=== PATIENT | female | born 1980 ===

== ENCOUNTER 2016-08-21 10:12 | Inpatient (IN) | payer MEDICAID, OTHER ==
[2016-08-21] MEDS ORDERED: Sodium Chloride 0.9% 1,000 ML IV STA ×2 (10:31→10:33)
[2016-08-21] MEDS ORDERED: Magnesium Sulfate 2 GM in Sodium Chloride 0.9% 100 ML IVPB ONE (10:32)
[2016-08-21 11:00] LABS: BASO # 0.02 K/mm3 (0.0-2.0); BASO % 0.5 % (0.0-3.0); GRAN # 2.53 (1.4-6.5); GRAN % 66.6 % (50.0-68.0); HEMOGLOBIN 12.4 gm/dL (12.0-16.0); LYMPH # 0.8 (1.2-3.4); LYMPH % 21.8 % (22.0-35.0); MEAN CELL VOLUME 97.1 fL (80.0-105.0); MEAN PLATELET VOLUME 8.6 fl (7.0-11.0); MONO # 0.4 (0.1-0.6); MONO % 11.1 % (1.0-6.0); PLATELET COUNT 134 10^3/uL (120.0-450.0); RBC 3.76 10^6/uL (3.5-6.1); RED CELL DISTRIBUTION WIDTH 18.6 % (11.5-14.5); WHITE BLOOD COUNT 3.8 10^3/ul (4.5-11.0)
[2016-08-21 11:13] LABS: ALB/GLOB RATIO 1.1 (1.1-1.8); ALBUMIN 3.9 g/dL (3.0-4.8); ALT/SGPT 73 U/L (7-56); AST/SGOT 395 U/L (15-39); BLOOD UREA NITROGEN 11 mg/dL (7-21); CALCIUM 8.2 mg/dL (8.4-10.5); GFR AFRICAN-AMERICAN > 60; GFR NON-AFRICAN AMERICAN > 60; LIPASE 92 U/L (23-300); MAGNESIUM 1.1 mg/dL (1.7-2.2)
[2016-08-21 11:20] LABS: URINE BILIRUBIN MODERATE (NEGATIVE); URINE BLOOD SMALL (NEGATIVE); URINE GLUCOSE (UA) NEGATIVE (NEGATIVE); URINE LEUKOCYTE ESTERASE MODERATE Leu/uL (NEGATIVE); URINE NITRATE POSITIVE (NEGATIVE); URINE PROTEIN 100 mg/dL (<30 mg/dL)
[2016-08-21 11:26] LABS: URINE APPEARANCE SL CLOUDY (CLEAR); URINE COLOR DARK YELLOW (YELLOW)
[2016-08-21 11:31] LABS: URINE BACTERIA LARGE (NEG); URINE EPITHELIAL CELLS 0 - 2 /hpf (0-5); URINE RBC 0 - 2 /hpf (0-2); URINE WBC 20 - 25 /hpf (0-6)
[2016-08-21] MEDS ORDERED: Potassium Chloride 40 mEq/30 ml LIQ UD PO STA (11:45)
[2016-08-21] MEDS ORDERED: cefTRIAXone 1 gm 1 GM/100 ML BAG IVPB STA (11:51)
[2016-08-21] MEDS ORDERED: Multivitamin (MVI) 10 ML, Thiamine 100 MG, Folic Acid 1 MG in Sodium Chloride 0.9% 1,00... IV ONE (12:32)
--- NOTE | 2016-08-21 12:52 | ED PDOC ---
Arrival/HPI - General Chief Complaint: Back Pain Time Seen by Provider: 08/21/16 10:16 Historian: Patient - History of Present Illness Narrative History of Present Illness (Text): 08/21/16 10:30 A 35 year old female, whose past medical history includes seizure disorder, was brought in by EMS to the emergency department for alcohol withdrawal symptoms. Patient reports to heavy drinking daily, last drink was 2 days ago. Patient complaining of nausea, vomiting, non-bilious, non-bloody, and mild left lower back pain but denies any hematuria, dysuria, fever or any other complaints at this time. Time/Duration: Other (2 days) Symptom Onset: Sudden Symptom Course: Unchanged Activities at Onset: Rest Context: Home Past Medical History - Provider Review Nursing Documentation Reviewed: Yes - Past History Past History: Unable to Obtain - Infectious Disease Hx of Infectious Diseases: None - Tetanus Immunization Tetanus Immunization: Unknown - Cardiac Hx Cardiac Disorders: No - Pulmonary Hx Respiratory Disorders: No - Neurological Hx Neurological Disorder: Yes Hx Seizures: Yes (followed by neurologist in [facility] [place] - HEENT Hx HEENT Disorder: No - Renal Hx Renal Disorder: No - Endocrine/Metabolic Hx Endocrine Disorders: No - Hematological/Oncological Hx Anemia: Yes (iron deficient) - Integumentary Hx Dermatological Disorder: No - Musculoskeletal/Rheumatological Hx Musculoskeletal Disorders: No Hx Falls: No - Gastrointestinal Hx Gastrointestinal Disorders: No - Genitourinary/Gynecological Hx Ovarian Cancer: Yes - Psychiatric Hx Bipolar Disorder: Yes Hx Depression: Yes Hx Schizophrenia: Yes Hx Substance Use: Yes - Past Surgical History Past Surgical History: Unable to Obtain - Surgical History Hx Section: Yes Hx Hysterectomy: Yes - Anesthesia Hx Anesthesia: Yes Hx Anesthesia Reactions: No - Suicidal Assessment Feels Threatened In Home Enviroment: No Family/Social History - Physician Review Nursing Documentation Reviewed: Yes Family/Social History: No Known Family HX Smoking Status: Heavy Smoker > 10 Cigarettes Daily Hx Alcohol Use: Yes Hx Substance Use: Yes Substance used: Oxycodone, heroin Hx Substance Use Treatment: No Allergies/Home Meds Allergies/Adverse Reactions: Allergies shellfish Allergy (Uncoded 08/21/16 10:30) ANGIOEDEMA Review of Systems - Physician Review All systems were reviewed & negative as marked: Yes - Review of Systems Constitutional: absent: Fevers Gastrointestinal: Nausea, Vomiting Genitourinary Female: absent: Dysuria, Hematuria Musculoskeletal: Other (mild left lower back pain) Physical Exam Vital Signs Reviewed: Yes Vital Signs Temp Pulse Resp BP Pulse Ox 08/21/16 13:04 62 18 130/64 98 08/21/16 11:54 62 18 122/64 98 08/21/16 10:14 98.8 F 78 18 140/104 H 100 Temperature: Afebrile Blood Pressure: Hypertensive Pulse: Regular Respiratory Rate: Normal Appearance: Positive for: Well-Appearing, Non-Toxic, Comfortable Pain Distress: None Mental Status: Positive for: Alert and Oriented X 3 - Systems Exam Head: Present: Atraumatic, Normocephalic Pupils: Present: PERRL Extroacular Muscles: Present: EOMI Conjunctiva: Present: Normal Mouth: Present: Dry, Other (tongue fasciculations) Neck: Present: Normal Range of Motion Respiratory/Chest: Present: Clear to Auscultation, Good Air Exchange. No: Respiratory Distress, Accessory Muscle Use Cardiovascular: Present: Regular Rate and Rhythm, Normal S1, S2. No: Murmurs Abdomen: Present: Tenderness (mild diffuse), Normal Bowel Sounds. No: Distention, Peritoneal Signs Back: Present: Normal Inspection Upper Extremity: Present: Other (bilateral upper extremity tremors). No: Cyanosis, Edema Lower Extremity: Present: Normal Inspection. No: Edema Neurological: Present: GCS=15, CN II-XII Intact, Speech Normal Skin: Present: Warm, Dry, Normal Color. No: Rashes Psychiatric: Present: Alert, Oriented x 3, Normal Insight, Normal Concentration Medical Decision Making ED Course and Treatment: 08/21/16 10:30 Impression: A 35 year old female with alcohol withdrawal symptoms. Differential Diagnosis included but are not limited to: alcohol withdrawal Plan: -- US abdomen -- Urinalysis -- labs -- Reassess and disposition Prior Visits: Notes and results from previous visits were reviewed. Patient last reported to the emergency department on 05/16/16 for evaluation of alcohol intoxication. Patient was admitted for alcohol detox. Progress Notes: 08/21/16 12:[address] Rendon, who accepts patient to be admitted to [facility] under her service. 08/21/16 13:25 US abdomen Creator : Westley Balderrama MD FINDINGS: LIVER: Liver was measured at 13.6 cm cc dimension on this current study however liver measured approximately 17.4 cm cc dimension on prior CT scan abdomen pelvis which is likely more accurate. Contour on liver demonstrates smooth contour however increased echotexture suggesting fatty infiltration. . Of. No obvious hepatic mass or collection. GALLBLADDER: Gallbladder is not visualized consistent with this patient's history of cholecystectomy COMMON BILE DUCT: Measures approximately 3.3 mm mm. No stones. No dilatation. PANCREAS: Pancreas is not seen on this study due to overlying bowel gas and body habitus. RIGHT KIDNEY: Measures approximately 10.0 x 3.9 x 5.5 cmcm. Normal echogenicity. No calculus, mass, or hydronephrosis. LEFT KIDNEY: Measures approximately 9.6 x 5.2 x 5.2 cmcm. Normal echogenicity. No calculus, mass, or hydronephrosis. SPLEEN: Spleen measured at 10.65 cm by 3.6 cm current ultrasound however the spleen measured approximately 11.7 cm cc x 14 cm ap x 3.[address] scan no splenic mass or collection. AORTA: No aneurysmal dilatation. IVC: Unremarkable. OTHER FINDINGS: None. IMPRESSION: Limited study as above. Liver exhibits increased echotexture likely related to a fatty infiltration however other infiltrative hepatocellular disease process not excluded. . - Lab Interpretations Lab Results: 08/21/16 10:50 08/21/16 10:50 Lab Results 08/21/16 11:12: Urine Color Dark yellow, Urine Appearance Sl cloudy, Urine pH 7.0, Ur Specific Grimsley 1.020, Urine Protein 100 H, Urine Glucose (UA) Negative , Urine Ketones 15 H, Urine Blood Small H, Urine Nitrate Positive H, Urine Bilirubin Moderate H, Urine Urobilinogen 2.0 H, Ur Leukocyte Esterase Moderate H , Urine RBC 0 - 2, Urine WBC 20 - 25, Ur Epithelial Cells 0 - 2, Urine Bacteria Large 08/21/16 10:50: Lactate Dehydrogenase 1302 H, Total Creatine Kinase 104, Troponin I < 0.01 08/21/16 10:50: Alcohol, Quantitative < 10 08/21/16 10:50: Sodium 138, Potassium 3.4 L, Chloride 100, Carbon Dioxide 28, Anion Gap 13, BUN 11, Creatinine 0.4 L, Est GFR ( Amer) > 60, Est GFR ( Non-Af Amer) > 60, Random Glucose 109, Calcium 8.2 L, Magnesium 1.1 L, Total Bilirubin 1.7 H, AST 395 H, ALT 73 H, Alkaline Phosphatase 414 H, Total Protein 7.4, Albumin 3.9, Globulin 3.5, Albumin/Globulin Ratio 1.1, Lipase 92 08/21/16 10:50: WBC 3.8 L, RBC 3.76, Hgb 12.4, Hct 36.5, MCV 97.1, MCH 33.0, MCHC 34.0, RDW 18.6 H, Plt Count 134, MPV 8.6, Gran % 66.6, Lymph % (Auto) 21.8 L, Beadle % (Auto) 11.1 H, Eos % (Auto) 0.0 L, Baso % (Auto) 0.5, Gran # 2.53, Lymph # 0.8 L, Beadle # 0.4, Eos # 0.0, Baso # 0.02 I have reviewed the lab results: Yes - RAD Interpretation Radiology Orders: 08/21/16 11:18 ABDOMEN COMPLETE [US] Stat - Medication Orders Current Medication Orders: Gabapentin (Neurontin) 300 mg PO BID [facility] PRN Reason: Protocol Last Admin: 08/21/16 17:19 Dose: 300 mg Multivitamins/Vitamin C 10 ml/Thiamine HCl 100 mg/ Folic Acid 1 mg/ Sodium Chloride 1,011.2 mls @ 100 mls/hr IV .Q10H7M ONE Stop: 08/21/16 22:38 Last Admin: 08/21/16 14:41 Dose: 100 mls/hr Ceftriaxone Sodium (Rocephin 1 Gram Ivpb) 1 gm in 100 mls @ 100 mls/hr IVPB DAILY [facility] PRN Reason: Protocol Levetiracetam (Keppra) 250 mg PO BID [facility] Last Admin: 08/21/16 17:20 Dose: 250 mg Lorazepam (Ativan) 2 mg IVP Q3H PRN; Protocol PRN Reason: Anxiety Last Admin: 08/21/16 17:19 Dose: 2 mg Ondansetron HCl (Zofran Inj) 4 mg IVP Q4H PRN PRN Reason: Nausea/Vomiting Pantoprazole Sodium (Protonix Inj) 40 mg IVP DAILY [facility] Last Admin: 08/21/16 13:02 Dose: 40 mg Quetiapine Fumarate (Seroquel) 100 mg PO HS [facility] PRN Reason: Protocol Trazodone HCl (Desyrel) 100 mg PO HS PRN PRN Reason: Insomnia Discontinued Medications Famotidine (Pepcid) 20 mg IVP STAT STA Stop: 08/21/16 10:32 Last Admin: 08/21/16 10:58 Dose: 20 mg Magnesium Sulfate 2 gm/ Sodium (Chloride) 104 mls @ 102 mls/hr IVPB ONCE ONE Stop: 08/21/16 11:33 Last Admin: 08/21/16 11:49 Dose: 102 mls/hr Sodium Chloride (Sodium Chloride 0.9%) 1,000 mls @ 1,000 mls/hr IV .Q1H STA Stop: 08/21/16 11:30 Last Admin: 08/21/16 10:58 Dose: 1,000 mls/hr Sodium Chloride (Sodium Chloride 0.9%) 1,000 mls @ 999 mls/hr IV .Q1H1M STA Stop: 08/21/16 11:33 Last Admin: 08/21/16 11:54 Dose: 999 mls/hr Ceftriaxone Sodium (Rocephin 1 Gram Ivpb) 1 gm in 100 mls @ 200 mls/hr IVPB STAT STA PRN Reason: Protocol Stop: 08/21/16 12:20 Last Admin: 08/21/16 13:02 Dose: 200 mls/hr Lorazepam (Ativan) 2 mg IVP STAT STA PRN Reason: Protocol Stop: 08/21/16 10:33 Last Admin: 08/21/16 10:59 Dose: 2 mg Lorazepam (Ativan) 1 mg IVP Q3H PRN; Protocol PRN Reason: Anxiety Ondansetron HCl (Zofran Inj) 4 mg IVP STAT STA Stop: 08/21/16 10:32 Last Admin: 08/21/16 10:58 Dose: 4 mg Potassium Chloride (Potassium Chloride Oral Soln) 40 meq PO STAT STA Stop: 08/21/16 11:46 Last Admin: 08/21/16 13:02 Dose: 40 meq Potassium Chloride (K-Dur 20 Meq Er Tab) 40 meq PO STAT STA Stop: 08/21/16 14:47 Last Admin: 08/21/16 15:19 Dose: 40 meq - Scribe Statement The provider has reviewed the documentation as recorded by the Mariza Chacon Provider Scribe Attestation: All medical record entries made by the Scribe were at my direction and personally dictated by me. I have reviewed the chart and agree that the record accurately reflects my personal performance of the history, physical exam, medical decision making, and the department course for this patient. I have also personally directed, reviewed, and agree with the discharge instructions and disposition. Disposition/Present on Arrival - Present on Arrival Any Indicators Present on Arrival: No History of DVT/PE: No History of Uncontrolled Diabetes: No Urinary Catheter: No History of Decub. Ulcer: No History Surgical Site Infection Following: None - Disposition Have Diagnosis and Disposition been Completed?: Yes Diagnosis: Alcohol withdrawal Disposition: HOSPITALIZED Disposition Time: 11:20 Condition: STABLE
--- NOTE | 2016-08-21 13:24 | US ---
HISTORY: diffuse abd. pain with elevated LFT's COMPARISON: Comparison made with abdominal ultrasound 11/24/2012. Comparison also made with CT scan abdomen and pelvis 02/12/2016 TECHNIQUE: Sonographic evaluation of the abdomen. FINDINGS: LIVER: Liver was measured at 13.6 cm cc dimension on this current study however liver measured approximately 17.4 cm cc dimension on prior CT scan abdomen pelvis which is likely more accurate. Contour on liver demonstrates smooth contour however increased echotexture suggesting fatty infiltration. . Of. No obvious hepatic mass or collection. GALLBLADDER: Gallbladder is not visualized consistent with this patient's history of cholecystectomy COMMON BILE DUCT: Measures approximately 3.3 mm mm. No stones. No dilatation. PANCREAS: Pancreas is not seen on this study due to overlying bowel gas and body habitus. RIGHT KIDNEY: Measures approximately 10.0 x 3.9 x 5.5 cmcm. Normal echogenicity. No calculus, mass, or hydronephrosis. LEFT KIDNEY: Measures approximately 9.6 x 5.2 x 5.2 cmcm. Normal echogenicity. No calculus, mass, or hydronephrosis. SPLEEN: Spleen measured at 10.65 cm by 3.6 cm current ultrasound however the spleen measured approximately 11.7 cm cc x 14 cm ap x 3.[address] scan no splenic mass or collection. AORTA: No aneurysmal dilatation. IVC: Unremarkable. OTHER FINDINGS: None. IMPRESSION: Limited study as above. Liver exhibits increased echotexture likely related to a fatty infiltration however other infiltrative hepatocellular disease process not excluded. .
[2016-08-21] MEDS ORDERED: Potassium Chloride 20 mEq ER Tab PO STA (14:46)
[2016-08-21 16:15] LABS: TROPONIN I < 0.01 ng/mL
[2016-08-21 17:12] VITALS: BMI 26.2
--- NOTE | 2016-08-21 17:24 | CP.PCM.HP ---
Addendum entered and electronically signed by RAVINDRA RICO DO 08/21/16 19:01 : Chest pain was addressed with serial troponins, ECG and vital signs q12 ordered. Will consider consulting cardiology pending results. Original Note: <RAVINDRA RICO - Last Filed: 08/21/16 17:14> History of Present Illness - History of Present Illness History of Present Illness: Chief Complaint: Alcohol Withdrawal Symptoms Ms. Valencia is a 35 year old female with a past medical history of alcohol abuse/withdrawal, unspecified seizure disorder, migraines, anemia, and Bipolar Type 2 presented to the ED with chief complaints of known alcohol withdrawal symptoms along with associated nausea and vomiting. Patient states that she drank a "big bottle" of vodka on night and then finished the little she had left in that bottle on Monday morning. She states that she ran out of money and hasn't been able to purchase any alcohol since then. She started "shaking" on Monday and has vomited " a few times" since then. She states that she hasn't had any seizures but she has experienced withdrawal from alcohol before and knew it was time to come to the hospital. She received a dose of Ativan and a magnesium sulfate infusion in the ED. Currently, she reports that she hasn't vomited since she came to hospital or had "the shakes". She does endorse a non-radiating chest pain for a duration of two hours. She denies fever, headache, changes in vision, shortness of breath, palpitations, diarrhea or numbness/tingling/weakness of any extremity. PMH: alcohol abuse/withdrawal, unspecified seizure disorder, migraines, anemia, and Bipolar Type 2 PSH: Hysterectomy, 2 C-sections Social History: 20 year pack smoking history, alcohol abuse, marijuana occasionally Home Medications: Gabapentin, Keppra, Seroquel, Trazadone Present on Admission - Present on Admission Any Indicators Present on Admission: No Review of Systems - Review of Systems Review of Systems: Refer to HPI Past Patient History - Infectious Disease Hx of Infectious Diseases: None - Tetanus Immunizations Tetanus Immunization: Unknown - Past Medical History & Family History Past Medical History?: Yes - Past Social History Smoking Status: Heavy Smoker > 10 Cigarettes Daily - CARDIAC Hx Cardiac Disorders: No - PULMONARY Hx Respiratory Disorders: No - NEUROLOGICAL Hx Seizures: Yes - HEENT Hx HEENT Problems: No - RENAL Hx Chronic Kidney Disease: No - ENDOCRINE/METABOLIC Hx Endocrine Disorders: No - HEMATOLOGICAL/ONCOLOGICAL Hx Blood Disorders: No - INTEGUMENTARY Hx Dermatological Problems: No - MUSCULOSKELETAL/RHEUMATOLOGICAL Hx Musculoskeletal Disorders: No Hx Falls: Yes - GASTROINTESTINAL Other/Comment: gastric bypass 2004 - GENITOURINARY/GYNECOLOGICAL Hx Genitourinary Disorders: No - PSYCHIATRIC Hx Psychophysiologic Disorder: No Hx Substance Use: No - SURGICAL HISTORY Hx Gastric Bypass Surgery: Yes (2004) Hx Hysterectomy: Yes (partial) - ANESTHESIA Hx Anesthesia: Yes Hx Anesthesia Reactions: No Meds Allergies/Adverse Reactions: Allergies Allergy/AdvReac Type Severity Reaction Status Date / Time shellfish Allergy ANGIOEDEMA Uncoded 08/21/16 10:30 Physical Exam - Constitutional Appears: No Acute Distress - Head Exam Head Exam: NORMAL INSPECTION - Eye Exam Eye Exam: EOMI, Normal appearance - ENT Exam ENT Exam: Mucous Membranes Moist, Normal Exam - Neck Exam Neck exam: Positive for: Full Rom - Respiratory Exam Respiratory Exam: Clear to Auscultation Bilateral, NORMAL BREATHING PATTERN. absent: Rales, Rhonchi, Wheezes, Respiratory Distress - Cardiovascular Exam Cardiovascular Exam: REGULAR RHYTHM, RRR, +S1, +S2 - GI/Abdominal Exam GI & Abdominal Exam: Normal Bowel Sounds. absent: Tenderness - Extremities Exam Extremities exam: Positive for: pedal pulses present. Negative for: calf tenderness, pedal edema - Neurological Exam Neurological exam: Alert, Oriented x3 - Psychiatric Exam Psychiatric exam: Normal Affect, Normal Mood - Skin Skin Exam: Dry, Intact, Normal Color, Warm Results - Vital Signs Recent Vital Signs: Last Vital Signs Temp 98.8 F 08/21/16 10:14 Pulse 62 08/21/16 13:04 Resp 14 08/21/16 16:52 BP 130/64 08/21/16 13:04 Pulse Ox 98 08/21/16 13:04 - Labs Result Diagrams: 08/21/16 10:50 08/21/16 10:50 Assessment & Plan - Assessment and Plan (Free Text) Assessment: Ms. Valencia is a 35 year old female with a past medical history of alcohol abuse/withdrawal, unspecified seizure disorder, migraines, anemia, and Bipolar Type 2 presented to the ED with chief complaints of known alcohol withdrawal symptoms along with associated nausea and vomiting. Plan: 1. Alcohol Withdrawal - Ativan 2mg q3 PRN, Banana bag - CIWA protocols, fall precautions, aspiration precautions - daily CBC, CMP and one time UDS to assess for history of drug use ordered - SW consulted to assist patient in finding resources for alcohol cessation - PT/OT evaluation 2. Nausea/Vomiting - Zofran 4mg IVP q4 PRN 3. UTI - UA with mod LE, positive nitrate, 20-25 WBC and large number bacteria - Rocephin 1g IVPB 4. History of Bipolar Type 2 - Psych consult, appreciate all recommendations - home Seroquel and trazadone resumed 5. History of Unspecified seizure disorder - resumed home neurontin and keppra 6. GI/DVT Prophylaxis - Protonix/scd's Patient was seen and case discussed in detail with attending, Dr. Rendon. - Date & Time Date: 08/21/16 Time: 18:42 <Shiav Rendon - Last Filed: 08/22/16 15:51> Results - Vital Signs Recent Vital Signs: Last Vital Signs Temp 98.7 F 08/22/16 08:01 Pulse 125 H 08/22/16 10:00 Resp 20 08/22/16 08:01 BP 120/73 08/22/16 08:01 Pulse Ox 92 L 08/22/16 08:01 - Labs Result Diagrams: 08/22/16 06:00 08/22/16 06:00 Labs: Laboratory Results - last 24 hr 08/22/16 08/22/16 08/22/16 06:00 06:00 06:00 WBC 2.4 L* D RBC 3.29 L Hgb 10.4 L Hct 32.2 L MCV 97.9 MCH 31.6 MCHC 32.3 RDW 18.1 H Plt Count 108 L MPV 9.1 Neutrophils % (Manual) 48 L Lymphocytes % (Manual) 42 H Monocytes % (Manual) 8 H Eosinophils % (Manual) 2 Platelet Evaluation Low Hypochromasia Slight PT 12.0 H INR 1.11 H APTT 27.0 Sodium 139 Potassium 3.5 L Chloride 106 Carbon Dioxide 26 Anion Gap 11 BUN 6 L Creatinine 0.4 L Est GFR ( Amer) > 60 Est GFR (Non-Af Amer) > 60 Random Glucose 70 Calcium 7.5 L Phosphorus Magnesium Total Bilirubin 1.0 AST 226 H ALT 54 Alkaline Phosphatase 283 H Lactate Dehydrogenase 915 H Total Creatine Kinase 104 Troponin I < 0.01 Total Protein 5.6 L Albumin 2.9 L Globulin 2.7 Albumin/Globulin Ratio 1.1 08/22/16 06:00 WBC RBC Hgb Hct MCV MCH MCHC RDW Plt Count MPV Neutrophils % (Manual) Lymphocytes % (Manual) Monocytes % (Manual) Eosinophils % (Manual) Platelet Evaluation Hypochromasia PT INR APTT Sodium Potassium Chloride Carbon Dioxide Anion Gap BUN Creatinine Est GFR ( Amer) Est GFR (Non-Af Amer) Random Glucose Calcium Phosphorus 2.9 Magnesium 1.6 L Total Bilirubin AST ALT Alkaline Phosphatase Lactate Dehydrogenase Total Creatine Kinase Troponin I Total Protein Albumin Globulin Albumin/Globulin Ratio Attending/Attestation - Attestation I have personally seen and examined this patient.: Yes I have fully participated in the care of the patient.: Yes I have reviewed all pertinent clinical information: Yes Notes (Text): 08/22/16 15:48 attending note; Patient seen and examined with resident in ER. Patient is a 35 year old female with a past medical history of alcohol abuse/ withdrawal, unspecified seizure disorder, migraines, anemia, and Bipolar Type 2 presented to the ED with chief complaints of known alcohol withdrawal symptoms along with associated nausea and vomiting. alcohol level was less than 10. Continue IV banana bag, Ativan. Seizure protocol/ CIWA protocol. Bipolar disorder; psych evaluation requested. Complete alcohol cessation is strongly advised. AA rehabilitation/AA meeting information given. elevated LFTs; secondary to alcohol abuse and hepatitis C chronic. History of hepatitis C; not treated. we will refer the patient to [facility] for hepatology clinic for further treatment. The patient will follow-up with PMD at [facility].
[2016-08-22 06:26] LABS: INR 1.11 (0.93-1.08)
[2016-08-22 07:04] LABS: ALB/GLOB RATIO 1.1 (1.1-1.8); ALBUMIN 2.9 g/dL (3.0-4.8); ALT/SGPT 54 U/L (7-56); AST/SGOT 226 U/L (15-39); BLOOD UREA NITROGEN 6 mg/dL (7-21); CALCIUM 7.5 mg/dL (8.4-10.5); GFR AFRICAN-AMERICAN > 60; GFR NON-AFRICAN AMERICAN > 60
[2016-08-22 07:13] LABS: TROPONIN I < 0.01 ng/mL
[2016-08-22 07:26] LABS: HEMOGLOBIN 10.4 gm/dL (12.0-16.0); MEAN CELL VOLUME 97.9 fL (80.0-105.0); MEAN CORPUSCULAR HEMOGLOBIN 31.6 pg (25.0-35.0); MEAN CORPUSCULAR HGB CONC 32.3 g/dl (31.0-37.0); MEAN PLATELET VOLUME 9.1 fl (7.0-11.0); PLATELET COUNT 108 10^3/uL (120.0-450.0); RBC 3.29 10^6/uL (3.5-6.1); RED CELL DISTRIBUTION WIDTH 18.1 % (11.5-14.5)
[2016-08-22 07:44] LABS: WHITE BLOOD COUNT 2.4 10^3/ul (4.5-11.0)
[2016-08-22 08:02] VITALS: RESP 20
[2016-08-22 08:36] LABS: EOSINOPHIL 2 % (0.0-3.0); LYMPHOCYTE 42 % (22.0-35.0); MONOCYTE 8 % (1.0-6.0); NEUTROPHIL 48 % (50.0-70.0)
[2016-08-22 08:37] LABS: HYPOCHROMIA SLIGHT; PLATELET ESTIMATE LOW (NORMAL)
[2016-08-22] MEDS: cefTRIAXone 1 gm 1 GM/100 ML BAG IVPB SCH (09:13)
[2016-08-22 09:23] LABS: MAGNESIUM 1.6 mg/dL (1.7-2.2)
[2016-08-22] MEDS ORDERED: Magnesium Sulfate 2 GM in Sodium Chloride 0.9% 100 ML IVPB ONE (12:16)
[2016-08-22] MEDS ORDERED: Potassium Chloride 20 mEq ER Tab PO ONE (12:30)
--- NOTE | 2016-08-22 15:27 | CP.PCM.CON ---
History of Present Illness - History of Present Illness History of Present Illness: Shortly pt is a 35 year old female with long and debilitating history of alcohol use disorder, history of being in detoxes in the past, most recent was in May 2016 at [facility],patient lives in [place] with a boyfriend, patient is mother of 2 children ages 10 and 11 years old. Her children live with her siste, pt currently resides with her fimelindae. She is unemployed at the moment and supports herself through her fiancee. patient was admitted on the medical side for evaluation of alcohol withdrawal symptoms, patient has history of bipolar disorder, history of alcohol use disorder that is why psychiatry consult was initiated. Patient was seen and examined at the morning time before breakfast patient was clear irritable, angry, "I am aggravate his right now, I need to eat before I talk to you". This movie writer attempted to speak to this patient within the next 40 minutes, patient presented much better, patient was calm, corporative, socially appropriate. Patient reported that she has history of bipolar disorder, patient reported that she was doing "fine recently", patient reported that she currently lives with her boyfriend who is very supportive, patient reported that she has cravings for alcohol, drinks approximately ago of vodka on daily basis, patient said at the moment of the interview she has mild withdrawal symptoms, upper extremities tremor, patient denied being depressed, denied thoughts of harming herself, denied thoughts of harming others. Patient denied visual, auditory, tactile hallucinations, patient denied feeling paranoid, patient reported that she has history of hearing voices. Patient was recently admitted to [facility] for detox, reports reviewed, pt was d/c to the [facility], pt was d/c on trazodone 100mg and seroquel 100mg, patient also has history of being admitted to the psychiatric inpatient unit to this facility most recent was in 01/17/[address] Box services, patient was diagnosed with mood disorder, opioid dependence, borderline personality. Patient has history of suicidal attempts, as per patient "it was very long time ago" patient didn't want to talk about that. Patient has hyperpigmentation so on the left upper extremity, seems like cuts, one was asked patient said that she burned herself with stove while cooking. pt has legal h/o: DUI arrest in 2015. Pt smokes marijuana and 1 pack of cigarettes a day. As per Izaiah h/o: Past Psychiatric History: Bipolar, Depression Family Psychiatric History: Mother-unknown (pt only recalls her mother seeing a psychiatrist) , Aunt-unknown (Pt recalls she used to talk to herself) Family Drug History: Father- ETOH abuse PMH: Anemia (ok now), Asthma, Epilepsy (since childhood), but stable now. mental status examination: Patient presented to be alert, pleasant, corporative , but obviously has mood swings, patient has fair eye contact, speech was normal rate, tone, quality, and quantity. Patient described her mood as " I was feeling all right", affect was constricted, mood congruent, thought process was coherent and goal directed, thought content; Patient denied visual, auditory, tactile hallucinations, patient denied paranoid ideations, patient does not present to be psychotic, insight and judgment are limited but improving impulses are well controlled. DSM 5: Alcohol withdrawal Alcohol use disorder-severe Bipolar 2 d/o Cannabis use d/o - moderate Plan: patient was resumed on traZODone [Desyrel] 100 mg PO HS PRN y medical team, agree Multivitamins, thiamine, folic acid PRN for alcohol withdrawals Naltrexone was d/w pt, risk/benefits and alternatives discussed with pt 50 mg daily levETIRAcetam [Keppra] 250 mg PO BID or seizures Gabapentin [Neurontin] 300 mg PO BID resumed by medical team, angry QUEtiapine [Seroquel] 100 mg PO HS was resumed by medical team, agree bed worker evaluation Possible [place] program Patient was attending [facility] program, consider to provide referral again If patient will be here tomorrow we'll follow-up on this patient Discussed with Dr. Rosales Past Patient History - Infectious Disease Hx of Infectious Diseases: None - Tetanus Immunizations Tetanus Immunization: Unknown - Past Medical History & Family History Past Medical History?: Yes - Past Social History Smoking Status: Heavy Smoker > 10 Cigarettes Daily - CARDIAC Hx Cardiac Disorders: No - PULMONARY Hx Respiratory Disorders: No - NEUROLOGICAL Hx Seizures: Yes - HEENT Hx HEENT Problems: No - RENAL Hx Chronic Kidney Disease: No - ENDOCRINE/METABOLIC Hx Endocrine Disorders: No - HEMATOLOGICAL/ONCOLOGICAL Hx Blood Disorders: No - INTEGUMENTARY Hx Dermatological Problems: No - MUSCULOSKELETAL/RHEUMATOLOGICAL Hx Musculoskeletal Disorders: No Hx Falls: Yes - GASTROINTESTINAL Other/Comment: gastric bypass 2004 - GENITOURINARY/GYNECOLOGICAL Hx Genitourinary Disorders: No - PSYCHIATRIC Hx Psychophysiologic Disorder: No Hx Substance Use: No - SURGICAL HISTORY Hx Gastric Bypass Surgery: Yes (2004) Hx Hysterectomy: Yes (partial) - ANESTHESIA Hx Anesthesia: Yes Hx Anesthesia Reactions: No Meds Allergies/Adverse Reactions: Allergies Allergy/AdvReac Type Severity Reaction Status Date / Time shellfish Allergy ANGIOEDEMA Uncoded 08/21/16 10:30 - Medications Medications: Current Medications Gabapentin (Neurontin) 300 mg PO BID [facility] PRN Reason: Protocol Last Admin: 08/22/16 09:13 Dose: 300 mg Ceftriaxone Sodium (Rocephin 1 Gram Ivpb) 1 gm in 100 mls @ 100 mls/hr IVPB DAILY [facility] PRN Reason: Protocol Last Admin: 08/22/16 09:13 Dose: 100 mls/hr Levetiracetam (Keppra) 250 mg PO BID [facility] Last Admin: 08/22/16 09:13 Dose: 250 mg Lorazepam (Ativan) 2 mg IVP Q3H PRN; Protocol PRN Reason: Anxiety Last Admin: 08/22/16 13:25 Dose: 2 mg Nicotine (Nicoderm Cq) 1 patch TD DAILY [facility] Last Admin: 08/22/16 09:14 Dose: 1 patch Ondansetron HCl (Zofran Inj) 4 mg IVP Q4H PRN PRN Reason: Nausea/Vomiting Pantoprazole Sodium (Protonix Inj) 40 mg IVP DAILY [facility] Last Admin: 08/22/16 09:13 Dose: 40 mg Potassium Chloride (K-Dur 20 Meq Er Tab) 40 meq PO ONCE ONE Stop: 08/22/16 23:26 Quetiapine Fumarate (Seroquel) 100 mg PO HS [facility] PRN Reason: Protocol Last Admin: 08/21/16 22:01 Dose: 100 mg Trazodone HCl (Desyrel) 100 mg PO HS PRN PRN Reason: Insomnia Last Admin: 08/21/16 22:01 Dose: 100 mg Results - Vital Signs Recent Vital Signs: Last Vital Signs Temp 98.7 F 08/22/16 08:01 Pulse 125 H 08/22/16 10:00 Resp 20 08/22/16 08:01 BP 120/73 08/22/16 08:01 Pulse Ox 92 L 08/22/16 08:01 - Labs Result Diagrams: 08/22/16 06:00 08/22/16 06:00 Labs: Laboratory Results - last 24 hr 08/22/16 08/22/16 08/22/16 06:00 06:00 06:00 WBC 2.4 L* D RBC 3.29 L Hgb 10.4 L Hct 32.2 L MCV 97.9 MCH 31.6 MCHC 32.3 RDW 18.1 H Plt Count 108 L MPV 9.1 Neutrophils % (Manual) 48 L Lymphocytes % (Manual) 42 H Monocytes % (Manual) 8 H Eosinophils % (Manual) 2 Platelet Evaluation Low Hypochromasia Slight PT 12.0 H INR 1.11 H APTT 27.0 Sodium 139 Potassium 3.5 L Chloride 106 Carbon Dioxide 26 Anion Gap 11 BUN 6 L Creatinine 0.4 L Est GFR ( Amer) > 60 Est GFR (Non-Af Amer) > 60 Random Glucose 70 Calcium 7.5 L Phosphorus Magnesium Total Bilirubin 1.0 AST 226 H ALT 54 Alkaline Phosphatase 283 H Lactate Dehydrogenase 915 H Total Creatine Kinase 104 Troponin I < 0.01 Total Protein 5.6 L Albumin 2.9 L Globulin 2.7 Albumin/Globulin Ratio 1.1 08/22/16 06:00 WBC RBC Hgb Hct MCV MCH MCHC RDW Plt Count MPV Neutrophils % (Manual) Lymphocytes % (Manual) Monocytes % (Manual) Eosinophils % (Manual) Platelet Evaluation Hypochromasia PT INR APTT Sodium Potassium Chloride Carbon Dioxide Anion Gap BUN Creatinine Est GFR ( Amer) Est GFR (Non-Af Amer) Random Glucose Calcium Phosphorus 2.9 Magnesium 1.6 L Total Bilirubin AST ALT Alkaline Phosphatase Lactate Dehydrogenase Total Creatine Kinase Troponin I Total Protein Albumin Globulin Albumin/Globulin Ratio
--- NOTE | 2016-08-22 15:31 | CP.PCM.PN ---
<RAVINDRA RICO - Last Filed: 08/22/16 15:22> Subjective - Date & Time of Evaluation Date of Evaluation: 08/22/16 Time of Evaluation: 09:00 - Subjective Subjective: Medicine Progress Note: Pt seen and assessed at bedside. Pt had no new complaints this morning. She states that she feels better now that she "isn't having to run back and forth to the bathroom to vomit". Pt denies headache, changes in vision, shortness of breath, cough, chest pain, vomiting, diarrhea, or numbness/tingling/weakness in any extremities. Objective - Vital Signs/Intake and Output Vital Signs (last 24 hours): Temp Pulse Resp BP Pulse Ox 98.7 F 125 H 20 120/73 92 L 08/22/16 08:01 08/22/16 10:00 08/22/16 08:01 08/22/16 08:01 08/22/16 08:01 Intake and Output: 08/22/16 08/22/16 06:59 18:59 Intake Total 3260 720 Balance 3260 720 - Medications Medications: Current Medications Gabapentin (Neurontin) 300 mg PO BID [facility] PRN Reason: Protocol Last Admin: 08/22/16 09:13 Dose: 300 mg Ceftriaxone Sodium (Rocephin 1 Gram Ivpb) 1 gm in 100 mls @ 100 mls/hr IVPB DAILY [facility] PRN Reason: Protocol Last Admin: 08/22/16 09:13 Dose: 100 mls/hr Levetiracetam (Keppra) 250 mg PO BID [facility] Last Admin: 08/22/16 09:13 Dose: 250 mg Lorazepam (Ativan) 2 mg IVP Q3H PRN; Protocol PRN Reason: Anxiety Last Admin: 08/22/16 13:25 Dose: 2 mg Nicotine (Nicoderm Cq) 1 patch TD DAILY [facility] Last Admin: 08/22/16 09:14 Dose: 1 patch Ondansetron HCl (Zofran Inj) 4 mg IVP Q4H PRN PRN Reason: Nausea/Vomiting Pantoprazole Sodium (Protonix Inj) 40 mg IVP DAILY [facility] Last Admin: 08/22/16 09:13 Dose: 40 mg Potassium Chloride (K-Dur 20 Meq Er Tab) 40 meq PO ONCE ONE Stop: 08/22/16 23:26 Quetiapine Fumarate (Seroquel) 100 mg PO HS [facility] PRN Reason: Protocol Last Admin: 08/21/16 22:01 Dose: 100 mg Trazodone HCl (Desyrel) 100 mg PO HS PRN PRN Reason: Insomnia Last Admin: 08/21/16 22:01 Dose: 100 mg - Labs Labs: 08/22/16 06:00 08/22/16 06:00 PT 12.0 Seconds (9.9-11.8) H 08/22/16 06:00 INR 1.11 (0.93-1.08) H 08/22/16 06:00 APTT 27.0 Seconds (23.7-30.8) 08/22/16 06:00 - Constitutional Appears: No Acute Distress - Head Exam Head Exam: NORMAL INSPECTION - Eye Exam Eye Exam: EOMI, Normal appearance - ENT Exam ENT Exam: Mucous Membranes Moist, Normal Exam - Neck Exam Neck Exam: Full ROM - Respiratory Exam Respiratory Exam: Clear to Ausculation Bilateral, NORMAL BREATHING PATTERN. absent: Rales, Rhonchi, Wheezes - Cardiovascular Exam Cardiovascular Exam: REGULAR RHYTHM, +S1, +S2. absent: Murmur - GI/Abdominal Exam GI & Abdominal Exam: Normal Bowel Sounds. absent: Distended - Extremities Exam Extremities Exam: Full ROM. absent: Calf Tenderness, Pedal Edema - Neurological Exam Neurological Exam: Alert, Awake, Normal Gait, Oriented x3 - Psychiatric Exam Psychiatric exam: Normal Affect, Normal Mood - Skin Skin Exam: Dry, Intact, Normal Color, Warm Assessment and Plan - Assessment and Plan (Free Text) Assessment: Ms. Valencia is a 35 year old female with a past medical history of alcohol abuse/withdrawal, unspecified seizure disorder, migraines, anemia, and Bipolar Type 2 presented to the ED with chief complaints of known alcohol withdrawal symptoms along with associated nausea and vomiting. Plan: 1. Alcohol Withdrawal - Ativan 2mg q3 PRN, Banana bag - CIWA protocols, fall precautions (patient refusing), aspiration precautions - UDS to assess for drug use ordered - Hepatitis panel ordered as patient reports a history of Hepatitis C; will base recommendations pending results - SW consulted to assist patient in finding resources for alcohol cessation - cont PT/OT; mild unsteadiness with needs for stair training; DC plan is home - daily CBC, CMP 2. Nausea/Vomiting - Zofran 4mg IVP q4 PRN - Abdominal US shows enlarged liver echotexture likely d/t fatty liver 3. UTI - cont Rocephin 1g IVPB - UA with mod LE, positive nitrate, 20-25 WBC and large number bacteria 4. Hypokalemia - potassium at 3.4 this AM - 40 meq KCL PO BID (only on 08/22) - will continue to monitor 5. Hypomagnesemia - Mg at 1.6 this AM - IV Mg 2mg given - will continue to monitor 6. Chest pain - ECG and troponins negative - likely 2/2 musculoskeletal etiology - will cont to monitor 7. History of Bipolar Type 2 - Psych consult, appreciate all recommendations - home Seroquel and trazadone resumed 8. History of Unspecified seizure disorder - resumed home neurontin and keppra 9. GI/DVT Prophylaxis - Protonix/scd's Patient was seen and case discussed in detail with attending, Dr. Rendon. <Shiva Rendon - Last Filed: 08/22/16 15:53> Objective - Vital Signs/Intake and Output Vital Signs (last 24 hours): Temp Pulse Resp BP Pulse Ox 98.7 F 125 H 20 120/73 92 L 08/22/16 08:01 08/22/16 10:00 08/22/16 08:01 08/22/16 08:01 08/22/16 08:01 Intake and Output: 08/22/16 08/22/16 06:59 18:59 Intake Total 3260 720 Balance 3260 720 - Medications Medications: Current Medications Gabapentin (Neurontin) 300 mg PO BID [facility] PRN Reason: Protocol Last Admin: 08/22/16 09:13 Dose: 300 mg Ceftriaxone Sodium (Rocephin 1 Gram Ivpb) 1 gm in 100 mls @ 100 mls/hr IVPB DAILY [facility] PRN Reason: Protocol Last Admin: 08/22/16 09:13 Dose: 100 mls/hr Levetiracetam (Keppra) 250 mg PO BID [facility] Last Admin: 08/22/16 09:13 Dose: 250 mg Lorazepam (Ativan) 2 mg IVP Q3H PRN; Protocol PRN Reason: Anxiety Last Admin: 08/22/16 13:25 Dose: 2 mg Nicotine (Nicoderm Cq) 1 patch TD DAILY [facility] Last Admin: 08/22/16 09:14 Dose: 1 patch Ondansetron HCl (Zofran Inj) 4 mg IVP Q4H PRN PRN Reason: Nausea/Vomiting Pantoprazole Sodium (Protonix Inj) 40 mg IVP DAILY [facility] Last Admin: 08/22/16 09:13 Dose: 40 mg Potassium Chloride (K-Dur 20 Meq Er Tab) 40 meq PO ONCE ONE Stop: 08/22/16 23:26 Quetiapine Fumarate (Seroquel) 100 mg PO HS [facility] PRN Reason: Protocol Last Admin: 08/21/16 22:01 Dose: 100 mg Trazodone HCl (Desyrel) 100 mg PO HS PRN PRN Reason: Insomnia Last Admin: 08/21/16 22:01 Dose: 100 mg - Labs Labs: 08/22/16 06:00 08/22/16 06:00 PT 12.0 Seconds (9.9-11.8) H 08/22/16 06:00 INR 1.11 (0.93-1.08) H 08/22/16 06:00 APTT 27.0 Seconds (23.7-30.8) 08/22/16 06:00 Attending/Attestation - Attestation I have personally seen and examined this patient.: Yes I have fully participated in the care of the patient.: Yes I have reviewed all pertinent clinical information, including history, physical exam and plan: Yes Notes (Text): 08/22/16 15:52 attending note; Patient seen and examined with resident. Patient is a 35 year old female with a past medical history of alcohol abuse/ withdrawal, unspecified seizure disorder, migraines, anemia, and Bipolar Type 2 presented to the ED with chief complaints of known alcohol withdrawal symptoms along with associated nausea and vomiting. improved significantly. Tolerating diet. Continue IV banana bag, Ativan. Seizure protocol/ CIWA protocol. Bipolar disorder; psych evaluation appreciated. Patient follows up with [facility] for her psychiatric medication refill. Complete alcohol cessation is strongly advised. AA rehabilitation/AA meeting information given. pancytopenia; due to alcohol-induced bone marrow suppression. elevated LFTs; improving slowly. secondary to alcohol abuse and hepatitis C chronic. History of hepatitis C; not treated. we will refer the patient to [facility] for hepatology clinic for further treatment. The patient will follow-up with PMD at [facility].
[2016-08-22 16:53] LABS: HEPATITIS B SURFACE AG NEGATIVE (NEGATIVE)
[2016-08-22 16:59] LABS: HEPATITIS A IGM NEGATIVE (NEGATIVE); HEPATITIS B CORE AB NEGATIVE (NEGATIVE)
--- NOTE | 2016-08-22 17:18 | CARD ---
APPROVED REPORT EKG Measurement Heart [id number] <Conclusion> Normal sinus rhythm Minimal voltage criteria for LVH, may be normal variant Prolonged QT Abnormal ECG
[2016-08-22 18:28] LABS: BARBITURATES, UR NEGATIVE (NEGATIVE); BENZODIAZEPINES, UR NEGATIVE (NEGATIVE); OPIATES, UR NEGATIVE (NEGATIVE); PHENCYCLIDINE, UR NEGATIVE (NEGATIVE)
[2016-08-22 18:55] LABS: HEPATITIS C ANTIBODY REACTIVE (NEGATIVE)
[2016-08-22] MEDS: Potassium Chloride 20 mEq ER Tab PO ONE ×2 (21:31→23:25)
[2016-08-23 08:29] LABS: BASO # 0.01 K/mm3 (0.0-2.0); BASO % 0.3 % (0.0-3.0); EOS % 0.6 % (1.5-5.0); GRAN # 2.27 (1.4-6.5); GRAN % 67.7 % (50.0-68.0); HEMOGLOBIN 11.3 gm/dL (12.0-16.0); LYMPH # 0.8 (1.2-3.4); LYMPH % 23.9 % (22.0-35.0); MEAN CELL VOLUME 99.1 fL (80.0-105.0); MEAN CORPUSCULAR HEMOGLOBIN 32.5 pg (25.0-35.0); MEAN CORPUSCULAR HGB CONC 32.8 g/dl (31.0-37.0); MEAN PLATELET VOLUME 9.2 fl (7.0-11.0); MONO # 0.3 (0.1-0.6); MONO % 7.5 % (1.0-6.0); PLATELET COUNT 104 10^3/uL (120.0-450.0); RBC 3.48 10^6/uL (3.5-6.1); RED CELL DISTRIBUTION WIDTH 18.1 % (11.5-14.5); WHITE BLOOD COUNT 3.4 10^3/ul (4.5-11.0)
[2016-08-23 08:32] LABS: ALB/GLOB RATIO 1.2 (1.1-1.8); ALBUMIN 3.4 g/dL (3.0-4.8); ALT/SGPT 61 U/L (7-56); AST/SGOT 241 U/L (15-39); BLOOD UREA NITROGEN < 2 mg/dL (7-21); CALCIUM 8.5 mg/dL (8.4-10.5); GFR AFRICAN-AMERICAN > 60; GFR NON-AFRICAN AMERICAN > 60
[2016-08-23] MEDS: cefTRIAXone 1 gm 1 GM/100 ML BAG IVPB SCH (09:12)
--- NOTE | 2016-08-23 16:07 | CP.PCM.CON ---
History of Present Illness - History of Present Illness History of Present Illness: Follow up note: Shortly pt is a 35 year old female with long and debilitating history of alcohol use disorder, history of being in detoxes in the past, most recent was in May 2016 at [facility],patient lives in [place] with a boyfriend, patient is mother of 2 children ages 10 and 11 years old. Her children live with her siste, pt currently resides with her fiancee. She is unemployed at the moment and supports herself through her fiancee. patient was admitted on the medical side for evaluation of alcohol withdrawal symptoms, patient has history of bipolar disorder, history of alcohol use disorder that is why psychiatry consult was initiated. patient was followed up today, presented to be calm, corporative, mild tremor in upper extremities. Patient reported that she would like to continue Seroquel and trazodone, patient reported that she will follow up with [facility], patient was advised at [facility] does not accept new patients, patient was advised to follow up at [facility] outpatient program and also social work evaluation need to be called. Patient denied being depressed, denied thoughts of harming herself or others, denied intent or plan. Patient presented well during the interview. as per nursing report, patient calm, corporative, no behavioral incidents. mental status examination: Patient presented to be alert, pleasant, corporative , patient has fair eye contact, speech was normal rate, tone, quality, and quantity. Patient described her mood as " I am all right", affect was constricted, mood congruent, thought process was coherent and goal directed, thought content; Patient denied visual, auditory,tactile hallucinations, patient denied paranoid ideations, patient does not present to be psychotic, insight and judgment are limited but improving impulses are well controlled. DSM 5: Alcohol withdrawal Alcohol use disorder-severe Bipolar 2 d/o Cannabis use d/o - moderate Plan: patient was resumed on traZODone [Desyrel] 100 mg PO HS PRN y medical team, agree Multivitamins, thiamine, folic acid PRN for alcohol withdrawals Naltrexone was d/w pt, risk/benefits and alternatives discussed with pt 50 mg daily levETIRAcetam [Keppra] 250 mg PO BID or seizures Gabapentin [Neurontin] 300 mg PO BID resumed by medical team, angry QUEtiapine [Seroquel] 100 mg PO HS was resumed by medical team, agree bone worker evaluation Possible [place] program Patient was attending [facility] program, consider to provide referral again If patient will be here tomorrow we'll follow-up on this patient Discussed with Dr. Rosales this technical proposal writer will sign off thinking very much for letting me participate in care of your patient Past Patient History - Infectious Disease Hx of Infectious Diseases: None - Tetanus Immunizations Tetanus Immunization: Unknown - Past Medical History & Family History Past Medical History?: Yes - Past Social History Smoking Status: Heavy Smoker > 10 Cigarettes Daily - CARDIAC Hx Cardiac Disorders: No - PULMONARY Hx Respiratory Disorders: No - NEUROLOGICAL Hx Seizures: Yes - HEENT Hx HEENT Problems: No - RENAL Hx Chronic Kidney Disease: No - ENDOCRINE/METABOLIC Hx Endocrine Disorders: No - HEMATOLOGICAL/ONCOLOGICAL Hx Blood Disorders: No - INTEGUMENTARY Hx Dermatological Problems: No - MUSCULOSKELETAL/RHEUMATOLOGICAL Hx Musculoskeletal Disorders: No Hx Falls: Yes - GASTROINTESTINAL Other/Comment: gastric bypass 2004 - GENITOURINARY/GYNECOLOGICAL Hx Genitourinary Disorders: No - PSYCHIATRIC Hx Psychophysiologic Disorder: No Hx Substance Use: No - SURGICAL HISTORY Hx Gastric Bypass Surgery: Yes (2004) Hx Hysterectomy: Yes (partial) - ANESTHESIA Hx Anesthesia: Yes Hx Anesthesia Reactions: No Meds Home Medications: Home Medication List Medication Instructions Recorded Confirmed Type Ciprofloxacin [Cipro] 250 mg PO BID #6 tab 08/23/16 Rx LORazepam [Ativan] 0.5 mg PO TID #6 tab 08/23/16 Rx Allergies/Adverse Reactions: Allergies Allergy/AdvReac Type Severity Reaction Status Date / Time shellfish Allergy ANGIOEDEMA Uncoded 08/21/16 10:30 - Medications Medications: Current Medications Gabapentin (Neurontin) 300 mg PO BID [facility] PRN Reason: Protocol Last Admin: 08/23/16 09:13 Dose: 300 mg Ceftriaxone Sodium (Rocephin 1 Gram Ivpb) 1 gm in 100 mls @ 100 mls/hr IVPB DAILY [facility] PRN Reason: Protocol Last Admin: 08/23/16 09:12 Dose: 100 mls/hr Levetiracetam (Keppra) 250 mg PO BID [facility] Last Admin: 08/23/16 09:13 Dose: 250 mg Lorazepam (Ativan) 2 mg IVP Q3H PRN; Protocol PRN Reason: Anxiety Last Admin: 08/23/16 12:48 Dose: 2 mg Nicotine (Nicoderm Cq) 1 patch TD DAILY [facility] Last Admin: 08/23/16 09:13 Dose: 1 patch Ondansetron HCl (Zofran Inj) 4 mg IVP Q4H PRN PRN Reason: Nausea/Vomiting Pantoprazole Sodium (Protonix Inj) 40 mg IVP DAILY [facility] Last Admin: 08/23/16 09:13 Dose: 40 mg Quetiapine Fumarate (Seroquel) 100 mg PO HS [facility] PRN Reason: Protocol Last Admin: 08/22/16 22:00 Dose: Not Given Trazodone HCl (Desyrel) 100 mg PO HS PRN PRN Reason: Insomnia Last Admin: 08/21/16 22:01 Dose: 100 mg Results - Vital Signs Recent Vital Signs: Last Vital Signs Temp 98.5 F 08/23/16 07:57 Pulse 68 08/23/16 10:00 Resp 20 08/23/16 07:57 BP 128/92 H 08/23/16 07:57 Pulse Ox 100 08/23/16 07:57 - Labs Result Diagrams: 08/23/16 08:20 08/23/16 08:20 Labs: Laboratory Results - last 24 hr 08/22/16 08/22/16 08/23/16 13:54 17:50 08:20 WBC 3.4 L D RBC 3.48 L Hgb 11.3 L Hct 34.5 L MCV 99.1 MCH 32.5 MCHC 32.8 RDW 18.1 H Plt Count 104 L MPV 9.2 Gran % 67.7 Lymph % (Auto) 23.9 [place] % (Auto) 7.5 H Eos % (Auto) 0.6 L Baso % (Auto) 0.3 Gran # 2.27 Lymph # 0.8 L [place] # 0.3 Eos # 0.0 Baso # 0.01 Sodium Potassium Chloride Carbon Dioxide Anion Gap BUN Creatinine Est GFR ( Amer) Est GFR (Non-Af Amer) Random Glucose Calcium Total Bilirubin AST ALT Alkaline Phosphatase Total Protein Albumin Globulin Albumin/Globulin Ratio Urine Opiates Screen Negative Urine Methadone Screen Negative Ur Barbiturates Screen Negative Ur Phencyclidine Scrn Negative Ur Amphetamines Screen Negative U Benzodiazepines Scrn Negative U Oth Cocaine Metabols Negative U Cannabinoids Screen Negative Hepatitis A IgM Ab Negative Hep Bs Antigen Negative Hep B Core IgM Ab Negative Hepatitis C Antibody Reactive H 08/23/16 08:20 WBC RBC Hgb Hct MCV MCH MCHC RDW Plt Count MPV Gran % Lymph % (Auto) [place] % (Auto) Eos % (Auto) Baso % (Auto) Gran # Lymph # [place] # Eos # Baso # Sodium 139 Potassium 4.3 Chloride 105 Carbon Dioxide 26 Anion Gap 12 BUN < 2 L Creatinine 0.4 L Est GFR ( Amer) > 60 Est GFR (Non-Af Amer) > 60 Random Glucose 73 Calcium 8.5 Total Bilirubin 1.1 AST 241 H ALT 61 H Alkaline Phosphatase 306 H Total Protein 6.3 Albumin 3.4 Globulin 2.9 Albumin/Globulin Ratio 1.2 Urine Opiates Screen Urine Methadone Screen Ur Barbiturates Screen Ur Phencyclidine Scrn Ur Amphetamines Screen U Benzodiazepines Scrn U Oth Cocaine Metabols U Cannabinoids Screen Hepatitis A IgM Ab Hep Bs Antigen Hep B Core IgM Ab Hepatitis C Antibody
[2016-08-23 17:34] VITALS: TEMP 98.2
--- NOTE | 2016-08-23 22:13 | CP.PCM.PN ---
<RAVINDRA RICO - Last Filed: 08/23/16 22:04> Subjective - Date & Time of Evaluation Date of Evaluation: 08/23/16 Time of Evaluation: 15:00 - Subjective Subjective: Medicine Progress Note: Pt seen and assessed at bedside. Pt had no new complaints this morning. When asked if pt felt comfortable being discharged home she replied that she would feel more comfortable if she were observed for one more night in the hospital. Pt denies headache, changes in vision, shortness of breath, cough, chest pain, vomiting, diarrhea, or numbness/tingling/weakness in any extremities. Objective - Vital Signs/Intake and Output Vital Signs (last 24 hours): Temp Pulse Resp BP Pulse Ox 98.2 F 66 20 118/82 99 08/23/16 16:00 08/23/16 16:00 08/23/16 16:00 08/23/16 16:00 08/23/16 16:00 Intake and Output: 08/23/16 08/24/16 18:59 06:59 Intake Total 240 360 Balance 240 360 - Medications Medications: Current Medications Acetaminophen (Tylenol 325mg Tab) 650 mg PO Q4H PRN PRN Reason: Pain, severe (8-10) Last Admin: 08/23/16 17:07 Dose: 650 mg Gabapentin (Neurontin) 300 mg PO BID WILMER PRN Reason: Protocol Last Admin: 08/23/16 17:07 Dose: 300 mg Ceftriaxone Sodium (Rocephin 1 Gram Ivpb) 1 gm in 100 mls @ 100 mls/hr IVPB DAILY WILMER PRN Reason: Protocol Last Admin: 08/23/16 09:12 Dose: 100 mls/hr Levetiracetam (Keppra) 250 mg PO BID WILMER Last Admin: 08/23/16 17:08 Dose: 250 mg Lorazepam (Ativan) 2 mg IVP Q3H PRN; Protocol PRN Reason: Anxiety Last Admin: 08/23/16 20:48 Dose: 2 mg Nicotine (Nicoderm Cq) 1 patch TD DAILY [facility] Last Admin: 08/23/16 09:13 Dose: 1 patch Ondansetron HCl (Zofran Inj) 4 mg IVP Q4H PRN PRN Reason: Nausea/Vomiting Last Admin: 08/23/16 18:47 Dose: 4 mg Pantoprazole Sodium (Protonix Inj) 40 mg IVP DAILY WILMER Last Admin: 08/23/16 09:13 Dose: 40 mg Quetiapine Fumarate (Seroquel) 100 mg PO HS WILMER PRN Reason: Protocol Last Admin: 08/22/16 22:00 Dose: Not Given Trazodone HCl (Desyrel) 100 mg PO HS PRN PRN Reason: Insomnia Last Admin: 08/21/16 22:01 Dose: 100 mg - Labs Labs: 08/23/16 08:20 08/23/16 08:20 PT 12.0 Seconds (9.9-11.8) H 08/22/16 06:00 INR 1.11 (0.93-1.08) H 08/22/16 06:00 APTT 27.0 Seconds (23.7-30.8) 08/22/16 06:00 - Constitutional Appears: No Acute Distress - Head Exam Head Exam: NORMAL INSPECTION - Eye Exam Eye Exam: EOMI, Normal appearance Pupil Exam: PERRL - ENT Exam ENT Exam: Mucous Membranes Moist, Normal Exam - Neck Exam Neck Exam: Full ROM - Respiratory Exam Respiratory Exam: Clear to Ausculation Bilateral, NORMAL BREATHING PATTERN. absent: Rales, Rhonchi, Wheezes, Respiratory Distress - Cardiovascular Exam Cardiovascular Exam: REGULAR RHYTHM, RRR, +S1, +S2. absent: Murmur - GI/Abdominal Exam GI & Abdominal Exam: Soft, Normal Bowel Sounds. absent: Distended - Extremities Exam Extremities Exam: absent: Calf Tenderness, Joint Swelling, Pedal Edema - Neurological Exam Neurological Exam: Alert, Awake, Normal Gait, Oriented x3 - Psychiatric Exam Psychiatric exam: Normal Affect, Normal Mood - Skin Skin Exam: Dry, Intact, Normal Color, Warm Assessment and Plan - Assessment and Plan (Free Text) Assessment: Ms. Valencia is a 35 year old female with a past medical history of alcohol abuse/withdrawal, unspecified seizure disorder, migraines, anemia, and Bipolar Type 2 presented to the ED with chief complaints of known alcohol withdrawal symptoms along with associated nausea and vomiting. Plan: 1. Alcohol Withdrawal - Ativan 2mg q3 PRN, Banana bag - CIWA protocols, fall precautions (patient refusing), aspiration precautions - SW consulted to assist patient in finding resources for alcohol cessation; patient uninterested at this time - cont PT/OT; DC plan is home - daily CBC, CMP 2. History of Hepatitis C - Serology positive for verification of reported hepatitis C history - will recommend and provide appropriate hepatology outpatient follow-up upon discharge 3. Nausea/Vomiting - Zofran 4mg IVP q4 PRN - Abdominal US shows enlarged liver echotexture likely d/t fatty liver 4. UTI - cont Rocephin 1g IVPB - will discharge on PO Cipro 500mg BID - UA with mod LE, positive nitrate, 20-25 WBC and large number bacteria 5. Hypokalemia - potassium at 4.3 this AM; increased from 3.4 - 40 meq KCL PO BID (only on 08/22) - will continue to monitor 6. Hypomagnesemia - Mg at 1.6 on 08/22 - IV Mg 2mg given - will continue to monitor 7. Chest pain - ECG and troponins negative - likely 2/2 musculoskeletal etiology - will cont to monitor 8. History of Bipolar Type 2 - will provide appropriate outpatient follow up instructions to get in touch with [facility] services upon discharge - Psych consult, appreciate all recommendations - home Seroquel and trazadone resumed 9. History of Unspecified seizure disorder - resumed home neurontin and keppra 10. GI/DVT Prophylaxis - Protonix/scd's Patient was seen and case discussed in detail with attending, Dr. Rendon. <Shiva Rendon - Last Filed: 08/27/16 11:21> Objective - Vital Signs/Intake and Output Vital Signs (last 24 hours): Temp Pulse Resp BP Pulse Ox 98.2 F 71 20 121/83 98 08/24/16 06:00 08/24/16 06:00 08/24/16 06:00 08/24/16 06:00 08/24/16 06:00 - Labs Labs: 08/24/16 05:00 08/24/16 05:00 PT 12.0 Seconds (9.9-11.8) H 08/22/16 06:00 INR 1.11 (0.93-1.08) H 08/22/16 06:00 APTT 27.0 Seconds (23.7-30.8) 08/22/16 06:00 Attending/Attestation - Attestation I have personally seen and examined this patient.: Yes I have fully participated in the care of the patient.: Yes I have reviewed all pertinent clinical information, including history, physical exam and plan: Yes Notes (Text): 08/27/16 11:17 attending note; Patient seen and examined with resident. Patient is a 35 year old female with a past medical history of alcohol abuse/ withdrawal, unspecified seizure disorder, migraines, anemia, and Bipolar Type 2 presented to the ED with chief complaints of known alcohol withdrawal symptoms along with associated nausea and vomiting. improved significantly. still needing IV Ativan. Tolerating diet. Continue IV banana bag, Ativan. Seizure protocol/ CIWA protocol. Bipolar disorder; psych evaluation appreciated. Patient follows up with [facility] for her psychiatric medication refill. elevated LFTs; improving slowly. secondary to alcohol abuse and hepatitis C chronic. History of hepatitis C; not treated. we will refer the patient to [facility] for hepatology clinic for further treatment. The patient will follow-up with PMD at [facility] [place] [facility].
[2016-08-24 06:54] LABS: BASO # 0.01 K/mm3 (0.0-2.0); BASO % 0.2 % (0.0-3.0); EOS % 0.4 % (1.5-5.0); GRAN % 63.7 % (50.0-68.0); HEMOGLOBIN 11.9 gm/dL (12.0-16.0); LYMPH # 1.3 (1.2-3.4); LYMPH % 28.4 % (22.0-35.0); MEAN CELL VOLUME 100.3 fL (80.0-105.0); MEAN CORPUSCULAR HEMOGLOBIN 32.4 pg (25.0-35.0); MEAN CORPUSCULAR HGB CONC 32.3 g/dl (31.0-37.0); MEAN PLATELET VOLUME 9.8 fl (7.0-11.0); MONO # 0.3 (0.1-0.6); MONO % 7.3 % (1.0-6.0); PLATELET COUNT 126 10^3/uL (120.0-450.0); RBC 3.67 10^6/uL (3.5-6.1); RED CELL DISTRIBUTION WIDTH 18.1 % (11.5-14.5); WHITE BLOOD COUNT 4.6 10^3/ul (4.5-11.0)
[2016-08-24 06:57] LABS: ALB/GLOB RATIO 1.1 (1.1-1.8); ALBUMIN 3.6 g/dL (3.0-4.8); ALT/SGPT 58 U/L (7-56); AST/SGOT 184 U/L (15-39); BLOOD UREA NITROGEN 2 mg/dL (7-21); CALCIUM 8.9 mg/dL (8.4-10.5); GFR AFRICAN-AMERICAN > 60; GFR NON-AFRICAN AMERICAN > 60
[2016-08-24 10:07] VITALS: BP 121/83; PULSE 71; O2SAT 98
[2016-08-24] MEDS: cefTRIAXone 1 gm 1 GM/100 ML BAG IVPB SCH (10:43)
--- NOTE | 2016-08-28 16:33 | CP.PCM.DIS ---
Provider - Provider Date of Admission: 08/21/16 11:57 Attending physician: Shiva Rendon MD Primary care physician: None Consults: Psychiatry- Dr. Shah Time Spent in preparation of Discharge (in minutes): 47 Hospital Course - Lab Results Lab Results: Most Recent Lab Values WBC 4.6 10^3/ul (4.5-11.0) D 08/24/16 05:00 RBC 3.67 10^6/uL (3.5-6.1) 08/24/16 05:00 Hgb 11.9 gm/dL (12.0-16.0) L 08/24/16 05:00 Hct 36.8 % (36.0-48.0) 08/24/16 05:00 MCV 100.3 fL (80.0-105.0) 08/24/16 05:00 MCH 32.4 pg (25.0-35.0) 08/24/16 05:00 MCHC 32.3 g/dl (31.0-37.0) 08/24/16 05:00 RDW 18.1 % (11.5-14.5) H 08/24/16 05:00 Plt Count 126 10^3/uL (120.0-450.0) 08/24/16 05:00 MPV 9.8 fl (7.0-11.0) 08/24/16 05:00 Gran % 63.7 % (50.0-68.0) 08/24/16 05:00 Lymph % (Auto) 28.4 % (22.0-35.0) 08/24/16 05:00 [place] % (Auto) 7.3 % (1.0-6.0) H 08/24/16 05:00 Eos % (Auto) 0.4 % (1.5-5.0) L 08/24/16 05:00 Baso % (Auto) 0.2 % (0.0-3.0) 08/24/16 05:00 Gran # 2.90 (1.4-6.5) 08/24/16 05:00 Lymph # 1.3 (1.2-3.4) 08/24/16 05:00 [place] # 0.3 (0.1-0.6) 08/24/16 05:00 Eos # 0.0 (0.0-0.7) 08/24/16 05:00 Baso # 0.01 K/mm3 (0.0-2.0) 08/24/16 05:00 Neutrophils % (Manual) 48 % (50.0-70.0) L 08/22/16 06:00 Lymphocytes % (Manual) 42 % (22.0-35.0) H 08/22/16 06:00 Monocytes % (Manual) 8 % (1.0-6.0) H 08/22/16 06:00 Eosinophils % (Manual) 2 % (0.0-3.0) 08/22/16 06:00 Platelet Evaluation Low (NORMAL) 08/22/16 06:00 Hypochromasia Slight 08/22/16 06:00 PT 12.0 Seconds (9.9-11.8) H 08/22/16 06:00 INR 1.11 (0.93-1.08) H 08/22/16 06:00 APTT 27.0 Seconds (23.7-30.8) 08/22/16 06:00 Sodium 139 mmol/L (132-148) 08/24/16 05:00 Potassium 4.4 mmol/L (3.6-5.0) 08/24/16 05:00 Chloride 105 mmol/L (98-107) 08/24/16 05:00 Carbon Dioxide 26 mmol/L (21-33) 08/24/16 05:00 Anion Gap 12 (10-20) 08/24/16 05:00 BUN 2 mg/dL (7-21) L 08/24/16 05:00 Creatinine 0.5 mg/dL (0.5-1.4) 08/24/16 05:00 Est GFR ( Amer) > 60 08/24/16 05:00 Est GFR (Non-Af Amer) > 60 08/24/16 05:00 Random Glucose 76 mg/dL (70-110) 08/24/16 05:00 Calcium 8.9 mg/dL (8.4-10.5) 08/24/16 05:00 Phosphorus 2.9 mg/dL (2.5-4.5) 08/22/16 06:00 Magnesium 1.6 mg/dL (1.7-2.2) L 08/22/16 06:00 Total Bilirubin 0.9 mg/dL (0.2-1.3) 08/24/16 05:00 AST 184 U/L (15-39) H 08/24/16 05:00 ALT 58 U/L (7-56) H 08/24/16 05:00 Alkaline Phosphatase 306 U/L (38-133) H 08/24/16 05:00 Lactate Dehydrogenase 915 U/L (333-699) H 08/22/16 06:00 Total Creatine Kinase 104 U/L (35-230) 08/22/16 06:00 Troponin I < 0.01 ng/mL 08/22/16 06:00 Total Protein 6.8 g/dL (5.8-8.3) 08/24/16 05:00 Albumin 3.6 g/dL (3.0-4.8) 08/24/16 05:00 Globulin 3.2 gm/dL 08/24/16 05:00 Albumin/Globulin Ratio 1.1 (1.1-1.8) 08/24/16 05:00 Lipase 92 U/L (23-300) 08/21/16 10:50 Urine Color Dark yellow (YELLOW) 08/21/16 11:12 Urine Appearance Sl cloudy (CLEAR) 08/21/16 11:12 Urine pH 7.0 (4.7-8.0) 08/21/16 11:12 Ur Specific [place] 1.020 (1.005-1.035) 08/21/16 11:12 Urine Protein 100 mg/dL (<30 mg/dL) H 08/21/16 11:12 Urine Glucose (UA) Negative mg/dL (NEGATIVE) 08/21/16 11:12 Urine Ketones 15 mg/dL (NEGATIVE) H 08/21/16 11:12 Urine Blood Small (NEGATIVE) H 08/21/16 11:12 Urine Nitrate Positive (NEGATIVE) H 08/21/16 11:12 Urine Bilirubin Moderate (NEGATIVE) H 08/21/16 11:12 Urine Urobilinogen 2.0 E.U./dL (<1 E.U./dL) H 08/21/16 11:12 Ur Leukocyte Esterase Moderate [place]/uL (NEGATIVE) H 08/21/16 11:12 Urine RBC 0 - 2 /hpf (0-2) 08/21/16 11:12 Urine WBC 20 - 25 /hpf (0-6) 08/21/16 11:12 Ur Epithelial Cells 0 - 2 /hpf (0-5) 08/21/16 11:12 Urine Bacteria Large (NEG) 08/21/16 11:12 Urine Opiates Screen Negative (NEGATIVE) 08/22/16 17:50 Urine Methadone Screen Negative (NEGATIVE) 08/22/16 17:50 Ur Barbiturates Screen Negative (NEGATIVE) 08/22/16 17:50 Ur Phencyclidine Scrn Negative (NEGATIVE) 08/22/16 17:50 Ur Amphetamines Screen Negative (NEGATIVE) 08/22/16 17:50 U Benzodiazepines Scrn Negative (NEGATIVE) 08/22/16 17:50 U Oth Cocaine Metabols Negative (NEGATIVE) 08/22/16 17:50 U Cannabinoids Screen Negative (NEGATIVE) 08/22/16 17:50 Alcohol, Quantitative < 10 mg/dL (0-10) 08/21/16 10:50 Hepatitis A IgM Ab Negative (NEGATIVE) 08/22/16 13:54 Hep Bs Antigen Negative (NEGATIVE) 08/22/16 13:54 Hep B Core IgM Ab Negative (NEGATIVE) 08/22/16 13:54 Hepatitis C Antibody Reactive (NEGATIVE) H 08/22/16 13:54 - Hospital Course Hospital Course: Ms. Valencia is a 35 year old female with a past medical history of alcohol abuse/withdrawal, unspecified seizure disorder, migraines, anemia, and Bipolar Type 2 presented to the ED with chief complaints of known alcohol withdrawal symptoms along with associated nausea and vomiting. She received a dose of Ativan and a magnesium sulfate infusion in the ED. She was admitted to [facility] and started on a banana bag, PRN Ativan and CIWA precautions. She was found to have a UTI via her UA and was started on rocephin. She was also started on all of her home medications for Bipolar Disorder and her seizure disorder. Psychiatry was consulted to discuss management of these medications. PT/OT was consulted for patients complaint of weakness. Patient was treated for alcohol withdrawal and UTI as above for two days and then discharged home on 08/24 with PO Cipro for 10 days and 6 Ativan tablets for any more possible withdrawal from alcohol. - Date & Time of H&P Date of H&P: 08/21/16 Time of H&P: 17:14 Discharge Exam - Head Exam Head Exam: NORMAL INSPECTION - Eye Exam Eye Exam: EOMI, Normal appearance - ENT Exam ENT Exam: Mucous Membranes Moist, Normal Exam - Neck Exam Neck exam: Full Rom, Normal Inspection - Respiratory Exam Respiratory Exam: NORMAL BREATHING PATTERN, UNREMARKABLE. absent: Rales, Rhonchi, Wheezes, Respiratory Distress - Cardiovascular Exam Cardiovascular Exam: REGULAR RHYTHM, RRR, +S1, +S2. absent: Bradycardia, Tachycardia, Systolic Murmur - GI/Abdominal Exam GI & Abdominal Exam: Normal Bowel Sounds, Unremarkable. absent: Guarding, Mass , Tenderness - Extremities Exam Extremities exam: full ROM, pedal pulses present Additional comments: no calf tenderness or pedal edema bilaterally - Neurological Exam Neurological exam: Alert, Normal Gait, Oriented x3 - Psychiatric Exam Psychiatric exam: Normal Affect, Normal Mood - Skin Skin Exam: Dry, Intact, Normal Color, Warm Discharge Plan - Discharge Medications Prescriptions: Ciprofloxacin [Cipro] 500 mg PO BID #10 tab LORazepam [Ativan] 0.5 mg PO TID #6 tab - Follow Up Plan Condition: STABLE Disposition: HOME/ ROUTINE Instructions: Urinary Tract Infection in Women (DC), Abuse of Alcohol (DC), Alcohol Withdrawal (DC), Alcohol Dependence (GEN) Additional Instructions: If your symptoms persist or worsen, please seek emergency medical attention. Please follow up with your PMD for a hospital follow up visit within one week. TAKE ALL MEDICATIONS PRESCRIBED. Referrals: [employer] Cory Chavez, [Non-Staff] -
== END 2016-08-24 15:16 | disposition home or self-care (01) | DRG 750 ==
LOC: ED 10:12 → ERH 11:57 → 3RNO 13:34
PROVIDERS: ADMIT Internal Medicine; ATTEND Internal Medicine
DX: F10.239 Alcohol dependence with withdrawal, unspecified (principal); D61.818 Other pancytopenia; F31.81 Bipolar II disorder; E83.42 Hypomagnesemia; N39.0 Urinary tract infection, site not specified; B18.2 Chronic viral hepatitis C; E87.6 Hypokalemia; G40.909 Epilepsy, unspecified, not intractable, without status epilepticus; G43.909 Migraine, unspecified, not intractable, without status migrainosus; F12.90 Cannabis use, unspecified, uncomplicated; R07.9 Chest pain, unspecified; F17.210 Nicotine dependence, cigarettes, uncomplicated; R11.2 Nausea with vomiting, unspecified; Y90.0 Blood alcohol level of less than 20 mg/100 ml; Z98.84 Bariatric surgery status

== ENCOUNTER 2016-10-14 11:22 | Emergency (ER) | payer MEDICAID ==
[2016-10-14 11:25] VITALS: BMI 28.3
[2016-10-14 11:31] VITALS: RESP 18; TEMP 98.3; O2SAT 100
[2016-10-14] MEDS ORDERED: Sodium Chloride 0.9% 1,000 ML IV STA (12:27)
--- NOTE | 2016-10-14 13:08 | ED PDOC ---
Addendum entered and electronically signed by Maxi WARNER,Mee Pedro PA-C 11/22 14:16: Addendum Addendum: 10/16/16 14:16 Pt called, spoke to her father, request that the patient be informed to call ER back regarding urine cx results. Original Note: Arrival/HPI - General Historian: Patient <Jose Daniel Davis - Last Filed: 10/14/16 15:37> <Curt Arora DO - Last Filed: 10/14/16 21:49> - General Chief Complaint: Abdominal Pain Time Seen by Provider: 10/14/16 11:53 - History of Present Illness Narrative History of Present Illness (Text): 10/14/16 13:05 35 F with PMHx pertinent for non-obstructing stones, partial hysterectomy, L sided oophorectomy, and Hep C presents with 2 day duration of sharp, left lower back pain radiating to the LLQ of her abdomen of 8/10 severity. Patient also admits to light vaginal bleeding, and states that she just returned from her PMD 's office where she also had blood in the urine. Patient denies any f/ch/n/v/d/ cp/sob. (Jose Daniel Davis) Past Medical History - Provider Review Nursing Documentation Reviewed: Yes - Past History Past History: Unable to Obtain - Infectious Disease Hx of Infectious Diseases: None - Tetanus Immunization Tetanus Immunization: Unknown - Cardiac Hx Cardiac Disorders: No - Pulmonary Hx Respiratory Disorders: No - Neurological Hx Seizures: Yes - HEENT Hx HEENT Disorder: No - Renal Hx Renal Disorder: No - Endocrine/Metabolic Hx Endocrine Disorders: No - Hematological/Oncological Hx Blood Disorders: No - Integumentary Hx Dermatological Disorder: No - Musculoskeletal/Rheumatological Hx Musculoskeletal Disorders: No Hx Falls: Yes - Gastrointestinal Other/Comment: gastric bypass 2004 - Genitourinary/Gynecological Hx Genitourinary Disorders: No - Psychiatric Hx Psychophysiologic Disorder: No Hx Substance Use: No - Past Surgical History Past Surgical History: Unable to Obtain - Surgical History Hx Gastric Bypass Surgery: Yes (2004) Hx Hysterectomy: Yes (partial) - Anesthesia Hx Anesthesia: Yes Hx Anesthesia Reactions: No Hx Malignant Hyperthermia: No - Suicidal Assessment Feels Threatened In Home Enviroment: No <Jose Daniel Davis - Last Filed: 10/14/16 15:37> Family/Social History - Physician Review Nursing Documentation Reviewed: Yes Family/Social History: No Known Family HX Smoking Status: Heavy Smoker > 10 Cigarettes Daily Hx Alcohol Use: Yes Hx Substance Use: No Substance used: Oxycodone, heroin Hx Substance Use Treatment: No <Jose Daniel Davis - Last Filed: 10/14/16 15:37> Allergies/Home Meds <Jose Daniel Davis - Last Filed: 10/14/16 15:37> <Curt Arora DO - Last Filed: 10/14/16 21:49> Allergies/Adverse Reactions: Allergies shellfish Allergy (Uncoded 08/21/16 10:30) ANGIOEDEMA Review of Systems - Review of Systems Constitutional: Normal. absent: Fatigue, Weight Change, Fevers Eyes: Normal. absent: Vision Changes, Photophobia ENT: Normal. absent: Hearing Changes, Tinnitus Respiratory: Normal. absent: SOB, Cough Cardiovascular: Normal. absent: Chest Pain, Palpitations, Edema Gastrointestinal: Normal (She does complain of Left lower abdominal pain, but it is more of a radiation from her back). absent: Diarrhea, Nausea, Vomiting Genitourinary Female: Hematuria, Vaginal Bleeding. absent: Normal, Dysuria, Frequency Musculoskeletal: Back Pain (moreso flank pain). absent: Arthralgias, Neck Pain , Joint Swelling Skin: Normal. absent: Rash, Pruritis, Skin Lesions Neurological: Normal. absent: Headache, Dizziness, Focal Weakness Endocrine: Normal. absent: Diaphoresis, Polyuria Hemo/Lymphatic: Normal. absent: Adenopathy, Easy Bleeding Psychiatric: Normal. absent: Anxiety, Depression <Jose Daniel Davis - Last Filed: 10/14/16 15:37> Physical Exam Vital Signs Reviewed: Yes Temperature: Afebrile Blood Pressure: Normal Pulse: Regular Respiratory Rate: Normal Appearance: Positive for: Well-Appearing, Non-Toxic, Comfortable Pain Distress: None Mental Status: Positive for: Alert and Oriented X 3 - Systems Exam Head: Present: Atraumatic, Normocephalic. No: Tenderness, Contusion Pupils: Present: PERRL. No: Sluggish, Non-Reactive, Pinpoint Extroacular Muscles: Present: EOMI. No: Gaze Palsy, Entrapment Conjunctiva: Present: Normal. No: Injected, Icteric Mouth: Present: Moist Mucous Membranes. No: Dry, Drooling Neck: Present: Normal Range of Motion. No: MIDLINE TENDERNESS, Paraspinal Tenderness Respiratory/Chest: Present: Clear to Auscultation, Good Air Exchange. No: Respiratory Distress, Accessory Muscle Use Cardiovascular: Present: Regular Rate and Rhythm, Normal S1, S2. No: Murmurs Abdomen: Present: Normal Bowel Sounds. No: Tenderness, Distention, Peritoneal Signs Back: Present: Normal Inspection, CVA Tenderness, Pain with Leg Raise. No: Midline Tenderness, Paraspinal Tenderness Upper Extremity: Present: Normal Inspection. No: Cyanosis, Edema Lower Extremity: Present: Normal Inspection, NORMAL PULSES. No: Edema, CALF TENDERNESS, Cyanosis Neurological: Present: GCS=15, CN II-XII Intact, Speech Normal Skin: Present: Warm, Dry, Normal Color. No: Rashes Psychiatric: Present: Alert, Oriented x 3, Normal Insight, Normal Concentration <Jose Daniel Davis - Last Filed: 10/14/16 15:37> Medical Decision Making <Jose Daniel Davis - Last Filed: 10/14/16 15:37> <Curt Arora DO - Last Filed: 10/14/16 21:49> ED Course and Treatment: Assessed 10/14/16 12:17 Impression: 35 F with PMHx pertinent for non-obstructing stones, partial hysterectomy, L sided oophorectomy, and Hep C presenting with L flank pain and vaginal VS urinary bleeding. Patient very uncomfortable at bedside. Plan: - CT Abd w/o contrast - CMP, CBC - UA, U Cx, U cg - Chlamydia, Gono - Fluids, toradol - Reassess Reassessed 10/14/16 15:37 - CMP, CBC normal, with mild LFT elevation, same as last visit - Urinalysis does not show any UTI - Pt's pain better after toradol - CT showed no change in stone, non-obstructing - TVUS ordered - Reassess (Jose Daniel Davis) 10/14/16 14:02 Patient Seen With Resident: In agreement with resident note which contains more details about the patient. Patient was seen and evaluated with resident. Came up with plan and treatment together. (uCrt Arora DO) - Lab Interpretations Lab Results: 10/14/16 13:28 10/14/16 13:28 Lab Results 10/14/16 13:28: Sodium 142, Potassium 4.6, Chloride 105, Carbon Dioxide 27, Anion Gap 15, BUN 4 L, Creatinine 0.4 L, Est GFR ( Amer) > 60, Est GFR ( Non-Af Amer) > 60, Random Glucose 84, Calcium 9.3, Total Bilirubin 0.6, AST 336 H, ALT 222 H, Alkaline Phosphatase 191 H, Total Protein 7.3, Albumin 4.2, Globulin 3.2, Albumin/Globulin Ratio 1.3 10/14/16 13:28: Urine Color Yellow, Urine Appearance Clear, Urine pH 7.5, Ur Specific [place] 1.010, Urine Protein Negative, Urine Glucose (UA) Negative, Urine Ketones Negative, Urine Blood Negative, Urine Nitrate Negative, Urine Bilirubin Negative, Urine Urobilinogen 0.2, Ur Leukocyte Esterase Negative, Urine HCG, Qual Negative 10/14/16 13:28: WBC 3.9 L, RBC 3.85, Hgb 11.3 L, Hct 34.9 L, MCV 90.6, MCH 29.4 , MCHC 32.4, RDW 15.6 H, Plt Count 250, MPV 8.6, Gran % 67.6, Lymph % (Auto) 26.4, [place] % (Auto) 4.9, Eos % (Auto) 0.8 L, Baso % (Auto) 0.3, Gran # 2.61, Lymph # 1.0 L, [place] # 0.2, Eos # 0.0, Baso # 0.01 - RAD Interpretation Radiology Orders: 10/14/16 12:21 ABD & PELVIS W/O PO OR IV CONT [CT] Stat 10/14/16 14:51 TRANSVAGINAL [US] Stat - Medication Orders Current Medication Orders: Discontinued Medications Sodium Chloride (Sodium Chloride 0.9%) 1,000 mls @ 999 mls/hr IV .Q1H1M STA Stop: 10/14/16 13:27 Last Admin: 10/14/16 12:40 Dose: 999 mls/hr Ketorolac Tromethamine (Toradol) 15 mg IVP STAT STA Stop: 10/14/16 12:22 Last Admin: 10/14/16 12:39 Dose: 15 mg - PA / IN HOME TUTOR / Resident Statement / has reviewed & agrees with the documentation as recorded. / has examined the patient and agrees with the treatment plan. <Curt Arora DO - Last Filed: 10/14/16 21:49> Disposition/Present on Arrival - Present on Arrival Any Indicators Present on Arrival: No History of DVT/PE: No History of Uncontrolled Diabetes: No Urinary Catheter: No History of Decub. Ulcer: No History Surgical Site Infection Following: None - Disposition Have Diagnosis and Disposition been Completed?: Yes Disposition Time: 16:00 <Jose Daniel Davis - Last Filed: 10/14/16 15:37> <Curt Arora DO - Last Filed: 10/14/16 21:49> - Disposition Diagnosis: Abnormal vaginal bleeding Disposition: HOME/ ROUTINE Condition: GOOD Additional Instructions: Devora Lizbeth, thank you for letting us take care of you today. Your providers were Dr. Arora and Dr. Lanza. You were treated for flank pain. The emergency medical care you received today was directed at your acute symptoms. If you were prescribed any medication, please fill it and take as directed. It may take several days for your symptoms to resolve. Return to the Emergency Department if your symptoms worsen, do not improve, or if you have any other problems. Please contact your doctor or call one of the physicians/clinics you have been referred to that are listed on the Patient Visit Information form that is included in your discharge packet. Bring any paperwork you were given at discharge with you along with any medications you are taking to your follow up visit. Our treatment cannot replace ongoing medical care by a primary care provider (PCP) outside of the emergency department. You got a gonorrhea and chlamydia test today - please call back for results. Please follow up with your primary care doctor. Thank you for allowing the [email or web address] team to be part of your care today. Referrals: PCP,NO [Primary Care Provider] - Follow up with primary Forms: [email or web address] (Arabic)
[2016-10-14 13:49] LABS: ALB/GLOB RATIO 1.3 (1.1-1.8); ALKALINE PHOSPHATASE 191 U/L (38-126); ALT/SGPT 222 U/L (7-56); AST/SGOT 336 U/L (14-36); BILIRUBIN,TOTAL 0.6 mg/dL (0.2-1.3); BLOOD UREA NITROGEN 4 mg/dL (7-21); CALCIUM 9.3 mg/dL (8.4-10.5); CARBON DIOXIDE 27 mmol/L (21-33); CHLORIDE 105 mmol/L (98-107); GFR AFRICAN-AMERICAN > 60; GLUCOSE,RANDOM 84 mg/dL (70-110); PH,URINE 7.5 (4.7-8.0); POTASSIUM 4.6 mmol/L (3.6-5.0); SODIUM 142 mmol/L (132-148); TOTAL PROTEIN 7.3 g/dL (5.8-8.3); URINE BILIRUBIN NEGATIVE (NEGATIVE); URINE BLOOD NEGATIVE (NEGATIVE); URINE GLUCOSE (UA) NEGATIVE (NEGATIVE); URINE KETONE NEGATIVE (NEGATIVE); URINE LEUKOCYTE ESTERASE NEGATIVE Leu/uL (NEGATIVE); URINE PROTEIN NEGATIVE mg/dL (<30 mg/dL); URINE UROBILINOGEN 0.2 E.U./dL (<1 E.U./dL)
[2016-10-14 13:50] LABS: BASO # 0.01 K/mm3 (0.0-2.0); BASO % 0.3 % (0.0-3.0); EOS % 0.8 % (1.5-5.0); GRAN # 2.61 (1.4-6.5); GRAN % 67.6 % (50.0-68.0); HEMATOCRIT 34.9 % (36.0-48.0); LYMPH % 26.4 % (22.0-35.0); MEAN CELL VOLUME 90.6 fl (80.0-105.0); MEAN CORPUSCULAR HEMOGLOBIN 29.4 pg (25.0-35.0); MEAN CORPUSCULAR HGB CONC 32.4 g/dl (31.0-37.0); MEAN PLATELET VOLUME 8.6 fl (7.0-11.0); MONO # 0.2 (0.1-0.6); MONO % 4.9 % (1.0-6.0); RED CELL DISTRIBUTION WIDTH 15.6 % (11.5-14.5); WHITE BLOOD COUNT 3.9 10^3/ul (4.5-11.0)
[2016-10-14 13:52] LABS: URINE APPEARANCE CLEAR (CLEAR); URINE COLOR YELLOW (YELLOW)
--- NOTE | 2016-10-14 14:43 | CT ---
PROCEDURE: CT Abdomen and Pelvis without intravenous contrast HISTORY: Flank pain COMPARISON: 02/12/2016 TECHNIQUE: Without contrast. Contrast Dose: Radiation dose: Total exam DLP = 826 mGy-cm. This CT exam was performed using one or more of the following dose reduction techniques: Automated exposure control, adjustment of the mA and/or kV according to patient size, and/or use of iterative reconstruction technique. FINDINGS: LOWER THORAX: Unremarkable. LIVER: Unremarkable. No gross lesion or ductal dilatation. GALLBLADDER AND BILE DUCTS: Gallbladder removed PANCREAS: Unremarkable. No gross lesion or ductal dilatation. SPLEEN: Unremarkable. ADRENALS: Unremarkable. No mass. KIDNEYS AND URETERS: Unremarkable. No hydronephrosis. No solid mass. 2 mm stone in the lower pole of the left kidney. No evidence of ureteral stone VASCULATURE: Unremarkable. No aortic aneurysm. BOWEL: Unremarkable. No obstruction. No gross mural thickening. APPENDIX: Unremarkable. Normal appendix. PERITONEUM: Unremarkable. No free fluid. No free air. LYMPH NODES: Unremarkable. No enlarged lymph nodes. BLADDER: Unremarkable. REPRODUCTIVE: Unremarkable. BONES: No acute fracture. OTHER FINDINGS: None. IMPRESSION: No acute findings. No evidence of urolithiasis
--- NOTE | 2016-10-14 15:58 | US ---
HISTORY: dysf. uterine bleeding (h/o partial hysterectomy) COMPARISON: None available. TECHNIQUE: PA Transvaginal only. Real -time technique with 2D, duplex and color Doppler FINDINGS: UTERUS: Measures 3.8 x 4.8 x 7.5 cm. Normal in size and appearance. No fibroid or other mass lesion seen. ENDOMETRIUM: Measures eight point so mm in diameter. Unremarkable. CERVIX: No cervical abnormality identified. RIGHT OVARY: Measures 1.8 x 2.6 x 3.8 cm. No solid mass. Normal flow. Complex, septated cyst 1.4 x 2.3 cm LEFT OVARY: Measures 1.8 x 3.4 x 4.6 cm. No solid mass. Normal flow. Multiple subcentimeter follicles. FREE FLUID: No significant free fluid noted. OTHER FINDINGS: None. IMPRESSION: No acute findings related to/accounting for the clinical presentation. Additional benign and/or incidental findings described above.
[2016-10-14 16:31] VITALS: BP 130/50; PULSE 78
== END 2016-10-14 16:20 | disposition home or self-care (01) ==
LOC: ED 11:22
DX: N93.9 Abnormal uterine and vaginal bleeding, unspecified (principal); Z90.711 Acquired absence of uterus with remaining cervical stump; Z90.721 Acquired absence of ovaries, unilateral; Z98.84 Bariatric surgery status
CPT/HCPCS: 74176; 76830; 80053; 81003; 84703; 85025; 87086; 87181; 96374; 99283; J1885; J7040

== ENCOUNTER 2016-11-27 10:04 | Inpatient (IN) | payer MEDICAID ==
[2016-11-27 10:08] VITALS: BMI 28.0
[2016-11-27] MEDS ORDERED: Multivitamin (MVI) 10 ML, Thiamine 100 MG, Folic Acid 1 MG in Sodium Chloride 0.9% 1,00... IV ONE (10:40)
[2016-11-27 10:53] LABS: BASO # 0.01 K/mm3 (0.0-2.0); BASO % 0.2 % (0.0-3.0); EOS % 0.7 % (1.5-5.0); GRAN # 2.7 (1.4-6.5); GRAN % 62.7 % (50.0-68.0); HEMATOCRIT 33.8 % (36.0-48.0); LYMPH # 1.3 (1.2-3.4); MEAN CELL VOLUME 83.9 fl (80.0-105.0); MEAN CORPUSCULAR HEMOGLOBIN 27.3 pg (25.0-35.0); MEAN CORPUSCULAR HGB CONC 32.5 g/dl (31.0-37.0); MEAN PLATELET VOLUME 8.6 fl (7.0-11.0); MONO # 0.3 (0.1-0.6); MONO % 7.4 % (1.0-6.0); RED CELL DISTRIBUTION WIDTH 16.3 % (11.5-14.5); WHITE BLOOD COUNT 4.3 10^3/ul (4.5-11.0)
[2016-11-27 11:03] LABS: ALB/GLOB RATIO 1.3 (1.1-1.8); ALKALINE PHOSPHATASE 149 U/L (38-126); ALT/SGPT 55 U/L (7-56); AST/SGOT 62 U/L (14-36); BILIRUBIN,TOTAL 0.4 mg/dL (0.2-1.3); BLOOD UREA NITROGEN 8 mg/dL (7-21); CARBON DIOXIDE 27 mmol/L (21-33); CHLORIDE 104 mmol/L (98-107); GFR AFRICAN-AMERICAN > 60; GLUCOSE,RANDOM 92 mg/dL (70-110); POTASSIUM 3.9 mmol/L (3.6-5.0); SODIUM 139 mmol/L (132-148); TOTAL PROTEIN 7.2 g/dL (5.8-8.3)
--- NOTE | 2016-11-27 11:22 | ED PDOC ---
Arrival/HPI - General Chief Complaint: Psychiatric Evaluation Time Seen by Provider: 11/27/16 10:30 Historian: Patient - History of Present Illness Narrative History of Present Illness (Text): 11/27/16 11:19 A 35 year old female, whose past medical history includes schizophrenia, bipolar disorder, depression, and seizure disorder, presents to the emergency department for psychiatric evaluation. The patient states she hasn't been taking her psych medications because she lost her insurance card and couldn't go to her doctors. The patient reports ever since she lost custody of her children a few months ago her life has been going down hill. 2 days ago she was kicked out of her apartment and she states on that day she drank 3 cups 8 oz of Mr. Conner mixed with Bleach within a 5 hour time frame. She states she drank the mixture of cleaning products because she was feeling suicidal and threw up twice after drinking the mixture. The patient still has suicidal ideation, but denies any homicidal ideation. She also admits to being an alcoholic for the past 2 years and her last drink was 2 days ago. The patient complains of mild epigastric burning and has tremors from alcohol withdrawal. The patient denies any fevers, headaches, chest pain, shortness of breath, or any other complaints at this time. Time/Duration: < week (x 2 days ) Symptom Onset: Other Symptom Course: Unchanged Activities at Onset: Emotional Upset Context: Home Past Medical History - Provider Review Nursing Documentation Reviewed: Yes - Past History Past History: Unable to Obtain - Infectious Disease Hx of Infectious Diseases: None - Tetanus Immunization Tetanus Immunization: Unknown - Cardiac Hx Cardiac Disorders: No - Pulmonary Hx Respiratory Disorders: No - Neurological Hx Neurological Disorder: Yes Hx Seizures: Yes (alcohol w/d) - HEENT Hx HEENT Disorder: No - Renal Hx Renal Disorder: No - Endocrine/Metabolic Hx Endocrine Disorders: No - Hematological/Oncological Hx Blood Disorders: No - Integumentary Hx Dermatological Disorder: No - Musculoskeletal/Rheumatological Hx Musculoskeletal Disorders: No Hx Falls: Yes - Gastrointestinal Other/Comment: gastric bypass 2005 - Genitourinary/Gynecological Hx Genitourinary Disorders: No - Psychiatric Hx Psychophysiologic Disorder: Yes Hx Anxiety: Yes Hx Bipolar Disorder: Yes Hx Depression: Yes Hx Schizophrenia: Yes Hx Substance Use: No Other/Comment: alcohol abuse - Past Surgical History Past Surgical History: Unable to Obtain - Surgical History Hx Gastric Bypass Surgery: Yes (2004) Hx Hysterectomy: Yes (partial) - Anesthesia Hx Anesthesia: Yes Hx Anesthesia Reactions: No Hx Malignant Hyperthermia: No - Suicidal Assessment Feels Threatened In Home Enviroment: No Family/Social History - Physician Review Nursing Documentation Reviewed: Yes Family/Social History: No Known Family HX Smoking Status: Heavy Smoker > 10 Cigarettes Daily Hx Alcohol Use: Yes Frequency of alcohol use: Daily Hx Substance Use: No Substance used: Oxycodone, heroin Hx Substance Use Treatment: No Allergies/Home Meds Allergies/Adverse Reactions: Allergies shellfish Allergy (Intermediate, Uncoded 11/27/16 10:08) ANGIOEDEMA Home Medications: Home Meds Medication Instructions Recorded Confirmed No Known Home Med 11/27/16 11/27/16 Review of Systems - Physician Review All systems were reviewed & negative as marked: Yes - Review of Systems Constitutional: absent: Fevers Respiratory: absent: SOB Cardiovascular: absent: Chest Pain Gastrointestinal: Abdominal Pain, Vomiting Neurological: absent: Headache Psychiatric: Depression, Suicidal Ideation Physical Exam Vital Signs Reviewed: Yes Vital Signs Temp Pulse Resp BP Pulse Ox 11/27/16 16:03 58 L 16 123/79 100 11/27/16 13:56 67 16 127/66 100 11/27/16 12:00 60 16 128/72 97 11/27/16 10:13 98.3 F 49 L 19 120/67 98 Temperature: Afebrile Blood Pressure: Normal Pulse: Bradycardic Respiratory Rate: Normal Appearance: Positive for: Well-Appearing, Non-Toxic, Comfortable, Other ( Patient is in no distress, but tremors are noted) Pain Distress: None Mental Status: Positive for: Alert and Oriented X 3 - Systems Exam Head: Present: Atraumatic, Normocephalic Pupils: Present: PERRL Extroacular Muscles: Present: EOMI Conjunctiva: Present: Normal Mouth: Present: Moist Mucous Membranes Neck: Present: Normal Range of Motion Respiratory/Chest: Present: Clear to Auscultation, Good Air Exchange. No: Respiratory Distress, Accessory Muscle Use Cardiovascular: Present: Regular Rate and Rhythm, Normal S1, S2. No: Murmurs Abdomen: Present: Tenderness (mild epigastric tenderness) Upper Extremity: Present: Normal Inspection. No: Cyanosis, Edema Lower Extremity: Present: Normal Inspection. No: Edema Neurological: Present: GCS=15, CN II-XII Intact, Speech Normal, Other (tremors ) Skin: Present: Warm, Dry, Normal Color. No: Rashes Psychiatric: Present: Alert, Oriented x 3, Depressed Mood, Suicidal Ideation. No: Normal Affect (flat affect), Homicidal Ideation Medical Decision Making ED Course and Treatment: 11/27/16 11:25 Impression: A 35 year old female for psychiatric evaluation. Differential Diagnosis included but are not limited to: Plan: -- EKG -- Chest X-ray -- Labs -- Multivitamin, Librium -- Urinalysis -- Reassess and disposition Progress Notes: 11/27/16 11:29 Case d/w Chanda from Poison Control, who recommends GI consult w/ possible endoscopy depending on the patient's signs and symptoms as per judgement by ER staff to evaluate extent of damage, as bleach is irritating, if it stays long enough, can cause a burn. Mr Clean contain detergents with are irritating or can cause a burn / erosion. Otherwise recommends supportive care. Considering the recommendations of poison control CT abdomen and pelvis without by mouth or IV contrast was ordered to rule out any perforation. 11/27/16 12:04 CXR : NAD, as read by PA EKG : Sinus arnoldo at 48bpm with a few PACs, as read by PA Labs reviewed: +mild microcytic anemia, LFTs mildly elevated but improved from prior labs, UA shows +UTI, urine tox +opiate and cannabis. Patient seen and elevated by Louie GALLEGOS. As per PES recommendation after case was discussed with Dr. Krueger, plan would be for inpatient admission for further medical clearance with consult to GI and psych. On reevaluation, patient is observed ambulating in the emergency room, in no acute distress, patient remains awake, alert, oriented 3. No tremors noted. Patient has no other complaints at this time. She is still in one-to-one observation for suicidal ideation. 11/27/16 15:00 CT A/P is negative with no acute findings. Case d/w Dr. Rendon, agrees with plan for medical admission with consult to GI Dr. Marshall. Patient made aware for further plan of care and she agrees with current plan. VS : P 67 BP 127/66 R 16 O2sat 100%RA. Case d/w GI, Dr. Marshall, agree for plan for AM consult. - Lab Interpretations Lab Results: 11/27/16 10:49 11/27/16 10:49 Lab Results 11/27/16 11:16: Urine Opiates Screen Positive H, Urine Methadone Screen Negative , Ur Barbiturates Screen Negative, Ur Phencyclidine Scrn Negative, Ur Amphetamines Screen Negative, U Benzodiazepines Scrn Negative, U Oth Cocaine Metabols Negative, U Cannabinoids Screen Positive H 11/27/16 11:16: Urine Color Yellow, Urine Appearance Cloudy, Urine pH 7.5, Ur Specific [place] 1.010, Urine Protein Negative, Urine Glucose (UA) Negative, Urine Ketones Negative, Urine Blood Negative, Urine Nitrate Positive H, Urine Bilirubin Negative, Urine Urobilinogen 0.2, Ur Leukocyte Esterase Small H, Urine RBC 0 - 2, Urine WBC 5 - 10, Ur Epithelial Cells 3 - 4, Urine Bacteria Mod 11/27/16 10:49: Alcohol, Quantitative < 10 11/27/16 10:49: Salicylates < 1 L, Acetaminophen < 10.0 L 11/27/16 10:49: Sodium 139, Potassium 3.9, Chloride 104, Carbon Dioxide 27, Anion Gap 12, BUN 8, Creatinine 0.5 L, Est GFR ( Amer) > 60, Est GFR (Non -Af Amer) > 60, Random Glucose 92, Calcium 9.0, Total Bilirubin 0.4, AST 62 H D , ALT 55, Alkaline Phosphatase 149 H D, Total Creatine Kinase 63, Total Protein 7.2, Albumin 4.0, Globulin 3.2, Albumin/Globulin Ratio 1.3 11/27/16 10:49: WBC 4.3 L, RBC 4.03, Hgb 11.0 L, Hct 33.8 L, MCV 83.9 D, MCH 27.3, MCHC 32.5, RDW 16.3 H, Plt Count 257, MPV 8.6, Gran % 62.7, Lymph % (Auto ) 29.0, Towns % (Auto) 7.4 H, Eos % (Auto) 0.7 L, Baso % (Auto) 0.2, Gran # 2.70 , Lymph # 1.3, Towns # 0.3, Eos # 0.0, Baso # 0.01 I have reviewed the lab results: Yes - RAD Interpretation Radiology Orders: 11/27/16 10:40 CHEST PORTABLE [RAD] Stat 11/27/16 11:40 ABDOMEN & PELVIS [ABD & PELVIS W/O PO OR IV CONT] [CT] Stat - Medication Orders Current Medication Orders: Acetaminophen (Tylenol 325mg Tab) 650 mg PO Q6H PRN PRN Reason: Pain, Mild (1-3) Folic Acid (Folic Acid) 1 mg PO DAILY WILMER Multivitamins/Vitamin C 10 ml/Thiamine HCl 100 mg/ Folic Acid 1 mg/ Sodium Chloride 1,011.2 mls @ 100 mls/hr IV ONCE ONE Stop: 11/27/16 20:46 Last Admin: 11/27/16 12:04 Dose: 100 mls/hr eMAR Start Stop Document 11/27/16 12:04 (Rec: 11/27/16 12:04 [id number]) Intravenous Solution Start Date 11/27/16 Start Time 12:04 Folic Acid 1 mg/ Thiamine HCl 100 mg/ Multivitamins/Vitamin C 10 ml/ Dextrose 1 ,011.2 mls @ 100 mls/hr IV .Q10H7M WILMER Levetiracetam (Keppra) 250 mg PO BID WILMER Lorazepam (Ativan) 2 mg IVP Q3 PRN; Protocol PRN Reason: Anxiety Lorazepam (Ativan) 2 mg IVP Q6H WILMER PRN Reason: Protocol Multivitamins/Minerals (Therapeutic-M Tab) 1 tab PO 0800 WILMER Nicotine (Nicoderm Cq) 1 patch TD DAILY WILMER Ondansetron HCl (Zofran Inj) 4 mg IVP Q6H PRN PRN Reason: Nausea/Vomiting Pantoprazole Sodium (Protonix Inj) 40 mg IVP DAILY WILMER Thiamine HCl (Vitamin B1 Tab) 100 mg PO DAILY WILMER Discontinued Medications Chlordiazepoxide (Librium) 50 mg PO STAT STA PRN Reason: Protocol Stop: 11/27/16 10:44 Last Admin: 11/27/16 11:17 Dose: 50 mg Nitrofurantoin Macrocrystals (Macrobid) 100 mg PO ONCE ONE Stop: 11/27/16 15:15 Last Admin: 11/27/16 16:02 Dose: 100 mg Pantoprazole Sodium (Protonix Inj) 40 mg IVP STAT STA Stop: 11/27/16 11:39 Last Admin: 11/27/16 12:04 Dose: 40 mg IVP Administration Document 11/27/16 12:04 (Rec: 11/27/16 12:04 [id number]) Charges for Administration # of IVP Administrations 1 - PA / SUPERVISOR EDUCATION / Resident Statement MD/DO has reviewed & agrees with the documentation as recorded. - Scribe Statement The provider has reviewed the documentation as recorded by the Scribe Lesa Rodriguez Provider Scribe Attestation: All medical record entries made by the Scribe were at my direction and personally dictated by me. I have reviewed the chart and agree that the record accurately reflects my personal performance of the history, physical exam, medical decision making, and the department course for this patient. I have also personally directed, reviewed, and agree with the discharge instructions and disposition. Disposition/Present on Arrival - Present on Arrival Any Indicators Present on Arrival: No History of DVT/PE: No History of Uncontrolled Diabetes: No Urinary Catheter: No History of Decub. Ulcer: No History Surgical Site Infection Following: None - Disposition Have Diagnosis and Disposition been Completed?: Yes Diagnosis: Alcohol abuse, Depression, Suicidal ideation, Bleach ingestion, UTI (urinary tract infection) Disposition: HOSPITALIZED Disposition Time: 15:00 Patient Plan: Admission Patient Problems: Current Active Problems Problem Status Onset Alcohol abuse Acute Depression Acute Suicidal ideation Acute Bleach ingestion Acute UTI (urinary tract infection) Acute Condition: STABLE
[2016-11-27 11:30] LABS: PH,URINE 7.5 (4.7-8.0); URINE BILIRUBIN NEGATIVE (NEGATIVE); URINE BLOOD NEGATIVE (NEGATIVE); URINE GLUCOSE (UA) NEGATIVE (NEGATIVE); URINE KETONE NEGATIVE (NEGATIVE); URINE LEUKOCYTE ESTERASE SMALL Leu/uL (NEGATIVE); URINE PROTEIN NEGATIVE mg/dL (<30 mg/dL); URINE UROBILINOGEN 0.2 E.U./dL (<1 E.U./dL)
[2016-11-27 11:46] LABS: URINE APPEARANCE CLOUDY (CLEAR); URINE COLOR YELLOW (YELLOW)
[2016-11-27 11:57] LABS: URINE BACTERIA MOD (NEG); URINE RBC 0 - 2 /hpf (0-2)
--- NOTE | 2016-11-27 13:42 | CT ---
PROCEDURE: CT Abdomen and Pelvis without intravenous contrast HISTORY: epigastric pain, drank bleach/Mr Clean COMPARISON: 10/14/2016 TECHNIQUE: Without contrast.. Contrast Dose: Radiation dose: Total exam DLP = 855 mGy-cm. This CT exam was performed using one or more of the following dose reduction techniques: Automated exposure control, adjustment of the mA and/or kV according to patient size, and/or use of iterative reconstruction technique. FINDINGS: LOWER THORAX: Suture lines are seen in the stomach. No evidence of gastric perforation. LIVER: Unremarkable. No gross lesion or ductal dilatation. GALLBLADDER AND BILE DUCTS: Gallbladder removed PANCREAS: Unremarkable. No gross lesion or ductal dilatation. SPLEEN: Unremarkable. ADRENALS: Unremarkable. No mass. KIDNEYS AND URETERS: Unremarkable. No hydronephrosis. No solid mass. Small nonobstructing stone in the left kidney VASCULATURE: Unremarkable. No aortic aneurysm. BOWEL: Unremarkable. No obstruction. No gross mural thickening. APPENDIX: Unremarkable. Normal appendix. PERITONEUM: Unremarkable. No free fluid. No free air. LYMPH NODES: Unremarkable. No enlarged lymph nodes. BLADDER: Unremarkable. REPRODUCTIVE: Unremarkable. BONES: No acute fracture. OTHER FINDINGS: None. IMPRESSION: No acute intra-abdominal findings
--- NOTE | 2016-11-27 13:57 | RAD ---
HISTORY: psych COMPARISON: 02/12/2016 FINDINGS: LUNGS: No active pulmonary disease. PLEURA: No significant pleural effusion identified, no pneumothorax apparent. CARDIOVASCULAR: Normal. OSSEOUS STRUCTURES: No significant abnormalities. VISUALIZED UPPER ABDOMEN: Normal. OTHER FINDINGS: None. IMPRESSION: No active disease.
[2016-11-27] MEDS ORDERED: Folic Acid 1 MG, Thiamine 100 MG, Multivitamin (MVI) 10 ML in Dextrose 5% In Water 1,00... IV SCH (16:15)
--- NOTE | 2016-11-27 16:24 | CP.PCM.HP ---
<Megan Melgar - Last Filed: 11/27/16 16:55> History of Present Illness - History of Present Illness History of Present Illness: Patient is a 35 year old female with past medical history of schizophrenia, bipolar d/o, seizure d/o, multiple suicide attempts, alcohol abuse, depression presents to the ED after suicide attempt. On Monday patient states that she drank 3 cups 8 oz of Mr. Conner mixed with Bleach in attempts to kill herself. Also states that she drank between 1/5 and a gallon of vodka the same day. When asked why she wanted to kill herself, patient states that her kids were taken away from her 3 months ago. He sister has custody of her children and visitation is limited. Patient also states that she was recently kicked out the apartment where she lives with her fiance. After she drank the bleach, she had NBNB vomiting x 2 and burning sensation in her stomach. She has since been able to tolerate liquids and popcorn. States that she drank bleach 10 years ago and was hospitalized for it. Patient has not been taking her psych medications for 2 years now because she lost her insurance. She has also been drinking alcohol for the past 2 years. Patient was recently hospitalized at [facility] for alcohol withdrawal August of this year. Prior to this suicide attempt she reports drinking a gallon of vodka and stepping in front of a moving vehicle. She has also tried burning her arm in the oven 1 week ago. Currently feels suicidal, denies homicidal ideation. Reports that she hears voices but they are not command type. Denies headaches, dizziness, cp, palpitations, abdominal pain, N/V , urinary symptoms, changes in bowel habits. Last seizure was due to alcohol withdrawal in 08/2016. ED course: Banana Bag, Librium 50mg x 1, Macrobid 100mg, Protonix 40mg PMD: Dr Mcfarlane Psych: [facility] Allergies: Shellfish Medications: none Surgical History: C/S x 2, gastric bypass, hysterectomy Medical History: Schizophrenia, Bipolar D/O, depression, Seizure d/o, untreated hepatitis C Social History: Not employed, smokes 1/2 pk/day, smokes marijuana, drinks 1/5 - 1 gallon of vodka/day; Lives with ben who kicked her out apt recently Family History: Mother - heart disease () ; Grandmother - heart disease Present on Admission - Present on Admission Any Indicators Present on Admission: No Review of Systems - Review of Systems All systems: reviewed and no additional remarkable complaints except - Constitutional Constitutional: absent: Chills, Fever - EENT Eyes: absent: Blurred Vision Ears: absent: Dizziness Nose/Mouth/Throat: absent: Dysphagia - Cardiovascular Cardiovascular: absent: Chest Pain, Dyspnea, Lightheadedness, Palpitations - Respiratory Respiratory: absent: Cough, Dyspnea, Wheezing, Pain on Inspiration - Gastrointestinal Gastrointestinal: absent: Abdominal Pain, Coffee Ground Emesis, Constipation, Diarrhea, Melena, Nausea, Vomiting - Genitourinary Genitourinary: absent: Dysuria, Hematuria, Urinary Frequency - Musculoskeletal Musculoskeletal: absent: Numbness, Tingling - Neurological Neurological: Tremor. absent: Confusion, Dizziness, Numbness, Headaches, Tingling, Weakness - Psychiatric Psychiatric: Anxiety, Auditory Hallucinations, Depression, Suicidal Ideation. absent: Homicidal Ideation, Visual Hallucinations Past Patient History - Infectious Disease Hx of Infectious Diseases: None - Tetanus Immunizations Tetanus Immunization: Unknown - Past Medical History & Family History Past Medical History?: Yes - Past Social History Smoking Status: Heavy Smoker > 10 Cigarettes Daily - CARDIAC Hx Cardiac Disorders: No - PULMONARY Hx Respiratory Disorders: No - NEUROLOGICAL Hx Neurological Disorder: Yes Hx Seizures: Yes (alcohol w/d) - HEENT Hx HEENT Problems: No - RENAL Hx Chronic Kidney Disease: No - ENDOCRINE/METABOLIC Hx Endocrine Disorders: No - HEMATOLOGICAL/ONCOLOGICAL Hx Blood Disorders: No - INTEGUMENTARY Hx Dermatological Problems: No - MUSCULOSKELETAL/RHEUMATOLOGICAL Hx Musculoskeletal Disorders: No Hx Falls: Yes - GASTROINTESTINAL Other/Comment: gastric bypass 2004 - GENITOURINARY/GYNECOLOGICAL Hx Genitourinary Disorders: No - PSYCHIATRIC Hx Psychophysiologic Disorder: Yes Hx Anxiety: Yes Hx Bipolar Disorder: Yes Hx Depression: Yes Hx Schizophrenia: Yes Hx Substance Use: No Other/Comment: alcohol abuse - SURGICAL HISTORY Hx Gastric Bypass Surgery: Yes (2004) Hx Hysterectomy: Yes (partial) - ANESTHESIA Hx Anesthesia: Yes Hx Anesthesia Reactions: No Hx Malignant Hyperthermia: No Meds Allergies/Adverse Reactions: Allergies Allergy/AdvReac Type Severity Reaction Status Date / Time shellfish Allergy Intermediate ANGIOEDEMA Uncoded 11/27/16 10:08 Physical Exam - Constitutional Appears: Non-toxic, No Acute Distress - Head Exam Head Exam: ATRAUMATIC, NORMAL INSPECTION - Eye Exam Eye Exam: EOMI, Normal appearance Pupil Exam: NORMAL ACCOMODATION - ENT Exam ENT Exam: Mucous Membranes Moist - Neck Exam Neck exam: Positive for: Full Rom - Respiratory Exam Respiratory Exam: Clear to Auscultation Bilateral, NORMAL BREATHING PATTERN. absent: Decreased Breath Sounds, Rales, Rhonchi, Wheezes - Cardiovascular Exam Cardiovascular Exam: REGULAR RHYTHM, +S1, +S2. absent: Systolic Murmur - GI/Abdominal Exam GI & Abdominal Exam: Normal Bowel Sounds, Soft. absent: Distended, Firm, Rebound, Rigid, Tenderness - Extremities Exam Extremities exam: Positive for: full ROM, normal inspection, pedal pulses present. Negative for: calf tenderness - Back Exam Back exam: NORMAL INSPECTION Additional comments: Healing scab on R knee Burn castillo noted on L arm Old cut castillo noted on R arm - Neurological Exam Neurological exam: Alert, Normal Gait, Oriented x3 - Psychiatric Exam Psychiatric exam: Anxious, Normal Affect, Suicidal Ideation - Skin Skin Exam: Dry, Normal Color, Warm Results - Vital Signs Recent Vital Signs: Last Vital Signs Temp 98.3 F 11/27/16 10:13 Pulse 58 L 11/27/16 16:03 Resp 16 11/27/16 16:03 BP 123/79 11/27/16 16:03 Pulse Ox 100 11/27/16 16:03 - Labs Result Diagrams: 11/27/16 10:49 11/27/16 10:49 Assessment & Plan - Assessment and Plan (Free Text) Assessment: Patient is a 35 year old female with past medical history of schizophrenia, bipolar d/o, seizure d/o, multiple suicide attempts, alcohol abuse, depression presents to the ED after suicide attempt. Plan: 1. Ingestion of erosive substance -Drank 3 cups 8 oz of Mr. Conner mixed with Bleach on Monday night into Monday morning -Poison control notified, recommending GI evaluation -Will keep on clear liquid diet, NPO after MN -Continue Banana Bag IV -Protonix 40mg IVP daily -Multivitamins, folic acid, thiamine -CT abd/pelvis: no acute intra-abdominal pathology -CXR: no active disease -Monitor labs, electrolytes; replete as needed -GI consulted, f/u recommendations 2. Alcohol abuse/Alcohol withdrawal -Last drink was Monday night -Hx of seizure 2/2 alcohol withdrawal -Ativan 2mg q6H WILMER -Ativan 2mg q3H prn anxiety -CIWA protocol -Seizure, fall and aspiration precautions 3. Anemia -Hgb 11.0 on admission -No overt signs of bleeding -Continue to monitor 4. Transaminitis -History of hepatitis C, untreated -AST/ALT 62/55 -Will order HIV -Continue to monitor -Avoid hepatotoxic agents 5. History of poly-substance abuse -Nicotine patch daily -UTOX positive for opiates and cannabinoids -Strongly advising alcohol and tobacco cessation 6. Asymptomatic Bacteruria -UA showing +nitrates and small leukocyte esterase -Currently asymptomatic -Received one dose of macrobid in ED -Will hold of abx at this time and f/u urine cx 7. History of Seizure D/O -Continue Keppra 250mg BID -Seizure precautions 8. History of Schizophrenia, Bipolar D/O, Depression, Multiple Suicide attempts -Has not taken her medications for past two years -Will place patient on 1:1 sitter -On previous admission, patient was on Seroquel 100mg qd, Trazodone 100mg HS -Psych on consult, f/u recommendations GI/DVT ppx Protonix 40mg IVP SCDs <Shiva Rendon - Last Filed: 11/27/16 18:07> Results - Vital Signs Recent Vital Signs: Last Vital Signs Temp 98.3 F 11/27/16 10:13 Pulse 58 L 11/27/16 16:03 Resp 16 11/27/16 16:03 BP 123/79 11/27/16 16:03 Pulse Ox 100 11/27/16 16:03 - Labs Result Diagrams: 11/27/16 10:49 11/27/16 10:49 Attending/Attestation - Attestation I have personally seen and examined this patient.: Yes I have fully participated in the care of the patient.: Yes I have reviewed all pertinent clinical information: Yes Notes (Text): 11/27/16 18:04 attending note; patient seen and examined in Resident In ER. Patient is a 35 year old female with past medical history of schizophrenia, bipolar d/o, seizure d/o, multiple suicide attempts, alcohol abuse, depression presents to the ED after suicide attempt after consuming alcohol and bleach on monday night. the patient was able to tolerate diet after ingesting bleach. Currently mild epigastric pain. CT abdomen and pelvis is negative. GI evaluation requested. Alcohol abuse; continue banana bag. Follow CIWA protocol. suicidal ideation; continue one-to-one. Psychiatric evaluation requested. deli worker evaluation requested for discharge planning. The patient will follow-up with PMD DR. mcfarlane upon discharge.
[2016-11-27 16:30] LABS: MAGNESIUM 1.6 mg/dL (1.7-2.2); PHOSPHOROUS 4.2 mg/dL (2.5-4.5)
[2016-11-27] MEDS ORDERED: Magnesium Sulfate 2 GM in Sodium Chloride 0.9% 100 ML IVPB ONE (17:19)
--- NOTE | 2016-11-27 20:55 | CARD ---
APPROVED REPORT EKG Measurement Heart [id number] <Conclusion> Marked sinus bradycardia with premature atrial complexes Abnormal ECG
[2016-11-28 05:47] LABS: BASO # 0.01 K/mm3 (0.0-2.0); BASO % 0.2 % (0.0-3.0); EOS # 0.1 (0.0-0.7); EOS % 1.4 % (1.5-5.0); GRAN # 2.43 (1.4-6.5); GRAN % 57.5 % (50.0-68.0); HEMATOCRIT 32.6 % (36.0-48.0); LYMPH # 1.4 (1.2-3.4); LYMPH % 33.1 % (22.0-35.0); MEAN CELL VOLUME 83.8 fl (80.0-105.0); MEAN CORPUSCULAR HEMOGLOBIN 27.5 pg (25.0-35.0); MEAN CORPUSCULAR HGB CONC 32.8 g/dl (31.0-37.0); MEAN PLATELET VOLUME 8.6 fl (7.0-11.0); MONO # 0.3 (0.1-0.6); MONO % 7.8 % (1.0-6.0); RED CELL DISTRIBUTION WIDTH 16.3 % (11.5-14.5); WHITE BLOOD COUNT 4.2 10^3/ul (4.5-11.0)
[2016-11-28 06:54] LABS: ALB/GLOB RATIO 1.1 (1.1-1.8); ALKALINE PHOSPHATASE 123 U/L (38-126); ALT/SGPT 46 U/L (7-56); AST/SGOT 54 U/L (14-36); BILIRUBIN,TOTAL 0.3 mg/dL (0.2-1.3); BLOOD UREA NITROGEN 6 mg/dL (7-21); CALCIUM 8.6 mg/dL (8.4-10.5); CARBON DIOXIDE 28 mmol/L (21-33); CHLORIDE 106 mmol/L (98-107); GFR AFRICAN-AMERICAN > 60; GLUCOSE,RANDOM 85 mg/dL (70-110); PHOSPHOROUS 4.3 mg/dL (2.5-4.5); POTASSIUM 3.5 mmol/L (3.6-5.0); SODIUM 140 mmol/L (132-148); TOTAL PROTEIN 6.6 g/dL (5.8-8.3)
[2016-11-28] MEDS ORDERED: Multivitamin With Minerals Tab PO SCH (08:00)
--- NOTE | 2016-11-28 09:41 | CP.PCM.PN ---
<Louie Hatfield - Last Filed: 11/28/16 13:30> Subjective - Date & Time of Evaluation Date of Evaluation: 11/28/16 Time of Evaluation: 09:40 - Subjective Subjective: patient was seen and examined at bedside. pt denies n/v, chest pain, shortness of breath, abdominal pain, dysuria. states she is still having suicidal ideations and states that she felt dizzy and unstable when standing up to use the bathroom. states that she feels like she's going through ETOH withdrawals and feels tremulous, but denies visual/auditory hallucinations or any seizure activity. Pt is agitated and is requesting that she be transferred upstairs to the psych unit. Objective - Vital Signs/Intake and Output Vital Signs (last 24 hours): Temp Pulse Resp BP Pulse Ox 98.6 F 55 L 20 133/79 100 11/28/16 08:14 11/28/16 08:14 11/28/16 08:14 11/28/16 08:14 11/28/16 08:14 Intake and Output: 11/28/16 11/28/16 06:59 18:59 Intake Total 660 Balance 660 - Medications Medications: Current Medications Acetaminophen (Tylenol 325mg Tab) 650 mg PO Q6H PRN PRN Reason: Pain, Mild (1-3) Folic Acid (Folic Acid) 1 mg PO DAILY [facility] Folic Acid 1 mg/ Thiamine HCl 100 mg/ Multivitamins/Vitamin C 10 ml/ Dextrose 1 ,011.2 mls @ 100 mls/hr IV .Q10H7M [facility] Levetiracetam (Keppra) 250 mg PO BID [facility] Last Admin: 11/27/16 18:54 Dose: 250 mg Lorazepam (Ativan) 2 mg IVP Q3 PRN; Protocol PRN Reason: Anxiety Last Admin: 11/28/16 08:43 Dose: 2 mg Lorazepam (Ativan) 2 mg IVP Q6 WILMER PRN Reason: Protocol Last Admin: 11/28/16 05:22 Dose: 2 mg Multivitamins/Minerals (Therapeutic-M Tab) 1 tab PO 0800 [facility] Last Admin: 11/28/16 08:45 Dose: 1 tab Nicotine (Nicoderm Cq) 1 patch TD DAILY [facility] Last Admin: 11/27/16 17:33 Dose: 1 patch Ondansetron HCl (Zofran Inj) 4 mg IVP Q6H PRN PRN Reason: Nausea/Vomiting Pantoprazole Sodium (Protonix Inj) 40 mg IVP DAILY W[facility] Thiamine HCl (Vitamin B1 Tab) 100 mg PO DAILY WILMER - Labs Labs: 11/28/16 05:10 11/28/16 05:10 - Constitutional Appears: Well, Non-toxic, No Acute Distress - Head Exam Head Exam: ATRAUMATIC, NORMAL INSPECTION, NORMOCEPHALIC - Eye Exam Eye Exam: EOMI, Normal appearance, PERRL Pupil Exam: NORMAL ACCOMODATION - ENT Exam ENT Exam: Mucous Membranes Moist - Neck Exam Neck Exam: Full ROM - Respiratory Exam Respiratory Exam: Clear to Ausculation Bilateral, NORMAL BREATHING PATTERN. absent: Rales, Rhonchi, Wheezes, Respiratory Distress - Cardiovascular Exam Cardiovascular Exam: REGULAR RHYTHM, RRR. absent: Murmur - GI/Abdominal Exam GI & Abdominal Exam: Soft, Normal Bowel Sounds. absent: Distended, Guarding, Tenderness - Extremities Exam Extremities Exam: Full ROM, Normal Inspection - Back Exam Back Exam: NORMAL INSPECTION - Neurological Exam Neurological Exam: Alert, Awake, Oriented x3 - Psychiatric Exam Psychiatric exam: Agitated, Suicidal Ideation. absent: Homicidal Ideation - Skin Skin Exam: Normal Color, Warm Additional comments: scars on b/l arms from cutting Assessment and Plan - Assessment and Plan (Free Text) Assessment: 35 year old female with past medical history of hepatitis C (untreated), schizophrenia, bipolar disease, anemia , multiple suicide attempts, alcohol abuse w/ withdrawal seizures, depression presents to the ED after suicide attempt by ingestion; Poison control was contacted and recommended GI. Pt is agitated and wanted to leave; ROSANA RAUSCH was called. Plan: 1. Suicide attempt via ingestion of erosive substance - advanced to regular diet, per GI recs - Protonix 40mg IVP daily - Monitor labs, electrolytes; replete as needed - 1:1 observation for suicide watch - GI consulted, f/u recommendations - Patient evaluated by Dr. Heaton for psych [facility] transfer 2. Alcohol abuse/Alcohol withdrawal - ROSANA RAUSCH was called due to agitation. Geodon and Ativan to be given. - Ativan 2mg q6H WILMER and 2mg q3H PRN - Keppra for seizure ppx - Banana bag - WA protocol - Seizure, fall and aspiration precautions 3. Anemia likely 2/2 chronic ETOH use - No overt signs of bleeding - Continue to monitor 4. Transaminitis likely 2/2 hepatitis C (untreated) - improving - f/u HIV - Continue to monitor - Avoid hepatotoxic agents 5. History of poly-substance abuse - Nicotine patch daily - UTOX positive for opiates and cannabinoids - Strongly advising alcohol and tobacco cessation 6. Asymptomatic Bacteruria - UA showing +nitrates and small leukocyte esterase - Currently asymptomatic - Received one dose of macrobid in ED - urine cx shows Gram neg rods 7. History of Seizure D/O - Continue Keppra 250mg BID - Seizure precautions 8. History of Schizophrenia, Bipolar D/O, Depression, Multiple Suicide attempts - Has not taken her medications for past two years - Psych on consult, f/u recommendations GI/DVT ppx Protonix/SCDs Diet: Regular Dispo: Patient is medically stable for transfer to psych unit pending acceptance and transfer Patient was seen, examined and discussed with attending, Dr. Benjamin Hatfield PGY1 <Mike Alexander - Last Filed: 11/28/16 17:46> Objective - Vital Signs/Intake and Output Vital Signs (last 24 hours): Temp Pulse Resp BP Pulse Ox 98.6 F 55 L 20 133/79 100 11/28/16 08:14 11/28/16 08:14 11/28/16 08:14 11/28/16 08:14 11/28/16 08:14 Intake and Output: 11/28/16 11/28/16 06:59 18:59 Intake Total 660 180 Balance 660 180 - Medications Medications: Current Medications Acetaminophen (Tylenol 325mg Tab) 650 mg PO Q6H PRN PRN Reason: Pain, Mild (1-3) Folic Acid (Folic Acid) 1 mg PO DAILY [facility] Last Admin: 11/28/16 10:14 Dose: 1 mg Folic Acid 1 mg/ Thiamine HCl 100 mg/ Multivitamins/Vitamin C 10 ml/ Dextrose 1 ,011.2 mls @ 100 mls/hr IV .Q10H7M [facility] Levetiracetam (Keppra) 250 mg PO BID [facility] Last Admin: 11/28/16 10:15 Dose: 250 mg Lorazepam (Ativan) 2 mg IVP Q3 PRN; Protocol PRN Reason: Anxiety Last Admin: 11/28/16 08:43 Dose: 2 mg Lorazepam (Ativan) 2 mg IVP Q6 WILMER PRN Reason: Protocol Last Admin: 11/28/16 12:00 Dose: Not Given Multivitamins/Minerals (Therapeutic-M Tab) 1 tab PO 0800 [facility] Last Admin: 11/28/16 08:45 Dose: 1 tab Nicotine (Nicoderm Cq) 1 patch TD DAILY [facility] Last Admin: 11/28/16 10:15 Dose: 1 patch Ondansetron HCl (Zofran Inj) 4 mg IVP Q6H PRN PRN Reason: Nausea/Vomiting Pantoprazole Sodium (Protonix Inj) 40 mg IVP DAILY [facility] Last Admin: 11/28/16 10:15 Dose: 40 mg Thiamine HCl (Vitamin B1 Tab) 100 mg PO DAILY [facility] Last Admin: 11/28/16 10:17 Dose: 100 mg - Labs Labs: 11/28/16 05:10 11/28/16 05:10 Attending/Attestation - Attestation I have personally seen and examined this patient.: Yes I have fully participated in the care of the patient.: Yes I have reviewed all pertinent clinical information, including history, physical exam and plan: Yes Notes (Text): I have seen and examined the patient at bedside. Agree with the above note with the following additions/ exceptions: Briefly this is 35 year old female with history of schizophrenia, bipolar d/o, seizure d/o, multiple suicide attempts, alcohol abuse, depression, known and untreated HepC, tobacco use presents to the ED after suicide attempt after consuming alcohol and bleach on Monday night. Patient denies any complaints. Refused examination by me. Patient is requesting for food and is really upset about NPO. Rosana vivar was called. Patient was started on soft diet. Continue protonix. Discussed with GI team. Plan for possible endoscopy tomorrow. She is not willing to stay on medsurg floor and is requesting to be transferred to psych floor. Continue 1:1 for suicidal ideation. Pateint was advised to follow up in [facility] GI clinic. She has UTI on macrobid. Urine culture pending. Tobacco cessation counselling provided. Upon discharge patient will follow up with Dr Mcfarlane. Dr Mike Alexander
--- NOTE | 2016-11-28 10:06 | CON ---
DATE: 11/27/2016 REASON FOR CONSULTATION: History of corrosive ingestion. HISTORY OF PRESENT ILLNESS: This is a 35-year-old patient with past medical history of bipolar disorder, schizophrenia, depression, and seizure disorder, presented to the emergency room with a history of multiple suicidal attempts. The patient has a long history of alcohol abuse nearly more than two years, she claims that she has been drinking about a half gallon of vodka along with other liquor. She says almost she drinks everyday, and on Monday, she drank three cups of 8-ounce Mr. Conner mixed with bleach. She said she has been tolerating the diet, and on Monday, she was eating. She does complain of some mild epigastric pain. The patient has a history of status post gastric bypass by Dr. Merritt done in [facility]. She does not remember having had any endoscopies done before. OTHER PAST MEDICAL HISTORY: As above, she said she has been admitted with a history of hysterectomy and two C-sections. SOCIAL HISTORY: Positive for alcohol as above and history of smoking about 20-pack year and history of marijuana use socially. REVIEW OF SYSTEMS: Other systems reviewed, positive as above. PHYSICAL EXAMINATION: GENERAL: On examination, the patient is lying on the bed, not in acute distress. VITAL SIGNS: Temperature is 99, blood pressure 111/60, respirations 18, O2 saturation 100% on room air, and pulse 70. HEENT: Atraumatic. Anicteric. NECK: Supple. HEART: S1 and S2 heard. LUNGS: Bilateral air entry present. ABDOMEN: Soft. There is no mass palpable. No tenderness. EXTREMITIES: No edema. No cyanosis. NEUROLOGIC: Alert and oriented, moves all the extremities. LABORATORY DATA: Hemoglobin 11, hematocrit 33.8, WBC 4.3, and platelets 257. Chemistries essentially; AST 62, ALT 55, alkaline phosphatase 149, and magnesium 1.6. Rest of the labs otherwise unremarkable. The patient did have an abdominal ultrasound done on 08/21, which was reviewed status post cholecystectomy, common bile duct normal. The patient had a CAT scan of the abdomen and pelvis done, which was reviewed. She had a suture line seen in the stomach; otherwise, unremarkable. IMPRESSION: This 35-year-old patient with bipolar disorder has recently ran out of the medication, had an attempted suicide, and brought into the hospital. The patient did consume three cups of Mr. Conner and bleach. The patient remains relatively asymptomatic, but able to tolerate the diet, but however, the patient has a long history of ethyl alcohol use. History of gastric bypass, possibility of erosive esophagitis secondary to the alcohol and also reflux disease to be considered. The patient never had upper gastrointestinal endoscopy done. The reasonable thing to do now is to consider upper gastrointestinal endoscopy to evaluate any effect of this corrosive ingestion and also history of ethyl alcohol and . PLAN: 1. Considerably the patient would benefit from the upper GI endoscopy. 2. High-dose PPI. Thank you very much for allowing me to participate in the care of this patient. We will continue to closely follow up her care and suggest further management based on the clinical course. Sukh Marshall MD
--- NOTE | 2016-11-28 13:52 | CP.PCM.PN ---
Subjective - Date & Time of Evaluation Date of Evaluation: 11/28/16 Time of Evaluation: 10:35 - Subjective Subjective: Seen and examined at the bedside earlier today, the chart was reviewed. Patient denies nausea or vomiting, not much abdominal pain. She complained she is hungry and threatens to leave if she is not given solid foods. Reports bowel movement that was regular, no reports of hematemesis or melena or bright red blood per rectum. Remains on one-to-one. Objective - Vital Signs/Intake and Output Vital Signs (last 24 hours): Temp Pulse Resp BP Pulse Ox 98.6 F 55 L 20 133/79 100 11/28/16 08:14 11/28/16 08:14 11/28/16 08:14 11/28/16 08:14 11/28/16 08:14 Intake and Output: 11/28/16 11/28/16 06:59 18:59 Intake Total 660 Balance 660 - Medications Medications: Current Medications Acetaminophen (Tylenol 325mg Tab) 650 mg PO Q6H PRN PRN Reason: Pain, Mild (1-3) Folic Acid (Folic Acid) 1 mg PO DAILY [facility] Last Admin: 11/28/16 10:14 Dose: 1 mg Folic Acid 1 mg/ Thiamine HCl 100 mg/ Multivitamins/Vitamin C 10 ml/ Dextrose 1 ,011.2 mls @ 100 mls/hr IV .Q10H7M [facility] Levetiracetam (Keppra) 250 mg PO BID [facility] Last Admin: 11/28/16 10:15 Dose: 250 mg Lorazepam (Ativan) 2 mg IVP Q3 PRN; Protocol PRN Reason: Anxiety Last Admin: 11/28/16 08:43 Dose: 2 mg Lorazepam (Ativan) 2 mg IVP Q6 WILMER PRN Reason: Protocol Last Admin: 11/28/16 05:22 Dose: 2 mg Multivitamins/Minerals (Therapeutic-M Tab) 1 tab PO 0800 [facility] Last Admin: 11/28/16 08:45 Dose: 1 tab Nicotine (Nicoderm Cq) 1 patch TD DAILY [facility] Last Admin: 11/28/16 10:15 Dose: 1 patch Ondansetron HCl (Zofran Inj) 4 mg IVP Q6H PRN PRN Reason: Nausea/Vomiting Pantoprazole Sodium (Protonix Inj) 40 mg IVP DAILY [facility] Last Admin: 11/28/16 10:15 Dose: 40 mg Thiamine HCl (Vitamin B1 Tab) 100 mg PO DAILY [facility] Last Admin: 11/28/16 10:17 Dose: 100 mg - Labs Labs: 11/28/16 05:10 11/28/16 05:10 - Constitutional Appears: No Acute Distress - Eye Exam Eye Exam: Normal appearance. absent: Scleral icterus - ENT Exam ENT Exam: Mucous Membranes Moist - Respiratory Exam Respiratory Exam: Clear to Ausculation Bilateral, NORMAL BREATHING PATTERN. absent: Respiratory Distress - Cardiovascular Exam Cardiovascular Exam: +S1, +S2 - GI/Abdominal Exam GI & Abdominal Exam: Soft, Normal Bowel Sounds. absent: Distended, Guarding, Tenderness, Organomegaly, Rebound - Extremities Exam Extremities Exam: Normal Capillary Refill. absent: Calf Tenderness, Pedal Edema - Neurological Exam Neurological Exam: Alert, Awake, Oriented x3 Assessment and Plan - Assessment and Plan (Free Text) Assessment: Assessment: Bipolar disorder, attempted suicide status post intake of Mister clean and bleach History of gastric bypass History of alcohol use Plan: On clears, discuss with medical team, been advanced to full liquid Will plan for endoscopy evaluation tomorrow, nothing by mouth post midnight Continue PPI On Ativan On IVF with MVI On one-to-one observation Seen and discussed with Dr. Rivera
[2016-11-28 16:55] VITALS: BP 132/68; PULSE 91; RESP 18; TEMP 95; O2SAT 91
--- NOTE | 2016-11-28 22:27 | CP.PCM.DIS ---
<Louie Hatfield - Last Filed: 11/28/16 22:21> Provider - Provider Date of Admission: 11/27/16 15:27 Attending physician: Mike Alexander MD Primary care physician: Dominique Mcfarlane MD Consults: psych and GI Time Spent in preparation of Discharge (in minutes): 45 Hospital Course - Lab Results Lab Results: Most Recent Lab Values WBC 4.2 10^3/ul (4.5-11.0) L 11/28/16 05:10 RBC 3.89 10^6/uL (3.5-6.1) 11/28/16 05:10 Hgb 10.7 g/dL (12.0-16.0) L 11/28/16 05:10 Hct 32.6 % (36.0-48.0) L 11/28/16 05:10 MCV 83.8 fl (80.0-105.0) 11/28/16 05:10 MCH 27.5 pg (25.0-35.0) 11/28/16 05:10 MCHC 32.8 g/dl (31.0-37.0) 11/28/16 05:10 RDW 16.3 % (11.5-14.5) H 11/28/16 05:10 Plt Count 211 10^3/uL (120.0-450.0) 11/28/16 05:10 MPV 8.6 fl (7.0-11.0) 11/28/16 05:10 Gran % 57.5 % (50.0-68.0) 11/28/16 05:10 Lymph % (Auto) 33.1 % (22.0-35.0) 11/28/16 05:10 [place] % (Auto) 7.8 % (1.0-6.0) H 11/28/16 05:10 Eos % (Auto) 1.4 % (1.5-5.0) L 11/28/16 05:10 Baso % (Auto) 0.2 % (0.0-3.0) 11/28/16 05:10 Gran # 2.43 (1.4-6.5) 11/28/16 05:10 Lymph # 1.4 (1.2-3.4) 11/28/16 05:10 [place] # 0.3 (0.1-0.6) 11/28/16 05:10 Eos # 0.1 (0.0-0.7) 11/28/16 05:10 Baso # 0.01 K/mm3 (0.0-2.0) 11/28/16 05:10 Sodium 140 mmol/L (132-148) 11/28/16 05:10 Potassium 3.5 mmol/L (3.6-5.0) L 11/28/16 05:10 Chloride 106 mmol/L (98-107) 11/28/16 05:10 Carbon Dioxide 28 mmol/L (21-33) 11/28/16 05:10 Anion Gap 10 (10-20) 11/28/16 05:10 BUN 6 mg/dL (7-21) L 11/28/16 05:10 Creatinine 0.5 mg/dL (0.7-1.2) L 11/28/16 05:10 Est GFR ( Amer) > 60 11/28/16 05:10 Est GFR (Non-Af Amer) > 60 11/28/16 05:10 Random Glucose 85 mg/dL (70-110) 11/28/16 05:10 Calcium 8.6 mg/dL (8.4-10.5) 11/28/16 05:10 Phosphorus 4.3 mg/dL (2.5-4.5) 11/28/16 05:10 Magnesium 2.0 mg/dL (1.7-2.2) 11/28/16 05:10 Total Bilirubin 0.3 mg/dL (0.2-1.3) 11/28/16 05:10 AST 54 U/L (14-36) H 11/28/16 05:10 ALT 46 U/L (7-56) 11/28/16 05:10 Alkaline Phosphatase 123 U/L (38-126) 11/28/16 05:10 Total Creatine Kinase 63 U/L (35-230) 11/27/16 10:49 Total Protein 6.6 g/dL (5.8-8.3) 11/28/16 05:10 Albumin 3.5 g/dL (3.0-4.8) 11/28/16 05:10 Globulin 3.1 gm/dL 11/28/16 05:10 Albumin/Globulin Ratio 1.1 (1.1-1.8) 11/28/16 05:10 Urine Color Yellow (YELLOW) 11/27/16 11:16 Urine Appearance Cloudy (CLEAR) 11/27/16 11:16 Urine pH 7.5 (4.7-8.0) 11/27/16 11:16 Ur Specific [place] 1.010 (1.005-1.035) 11/27/16 11:16 Urine Protein Negative mg/dL (<30 mg/dL) 11/27/16 11:16 Urine Glucose (UA) Negative mg/dL (NEGATIVE) 11/27/16 11:16 Urine Ketones Negative mg/dL (NEGATIVE) 11/27/16 11:16 Urine Blood Negative (NEGATIVE) 11/27/16 11:16 Urine Nitrate Positive (NEGATIVE) H 11/27/16 11:16 Urine Bilirubin Negative (NEGATIVE) 11/27/16 11:16 Urine Urobilinogen 0.2 E.U./dL (<1 E.U./dL) 11/27/16 11:16 Ur Leukocyte Esterase Small [place]/uL (NEGATIVE) H 11/27/16 11:16 Urine RBC 0 - 2 /hpf (0-2) 11/27/16 11:16 Urine WBC 5 - 10 /hpf (0-6) 11/27/16 11:16 Ur Epithelial Cells 3 - 4 /hpf (0-5) 11/27/16 11:16 Urine Bacteria Mod (NEG) 11/27/16 11:16 Salicylates < 1 mg/dL (2.0-20.0) L 11/27/16 10:49 Urine Opiates Screen Positive (NEGATIVE) H 11/27/16 11:16 Urine Methadone Screen Negative (NEGATIVE) 11/27/16 11:16 Acetaminophen < 10.0 ug/ml (10.0-20.0) L 11/27/16 10:49 Ur Barbiturates Screen Negative (NEGATIVE) 11/27/16 11:16 Ur Phencyclidine Scrn Negative (NEGATIVE) 11/27/16 11:16 Ur Amphetamines Screen Negative (NEGATIVE) 11/27/16 11:16 U Benzodiazepines Scrn Negative (NEGATIVE) 11/27/16 11:16 U Oth Cocaine Metabols Negative (NEGATIVE) 10/22/17 11:16 U Cannabinoids Screen Positive (NEGATIVE) H 11/27/16 11:16 Alcohol, Quantitative < 10 mg/dL (0-10) 11/27/16 10:49 - Hospital Course Hospital Course: MS. Valencia is a 35 year old female with past medical history of schizophrenia , bipolar d/o, seizure d/o, multiple suicide attempts, alcohol abuse, depression presents to the ED after suicide attempt. 2 days prior, patient states that she drank 3 cups 8 oz of Mr. Conner mixed with Bleach in attempts to kill herself. Also states that she drank between 1/5 and a gallon of vodka the same day. When asked why she wanted to kill herself, patient states that her kids were taken away from her 3 months ago. He sister has custody of her children and visitation is limited. Patient also states that she was recently kicked out the apartment where she lives with her fiance. After she drank the bleach, she had NBNB vomiting x 2 and burning sensation in her stomach. She has since been able to tolerate PO intake. States that she drank bleach 10 years ago and was hospitalized for it. Patient has not been taking her psych medications for 2 years now because she lost her insurance. She has also been drinking alcohol for the past 2 years. Patient was recently hospitalized at [facility] for alcohol withdrawal August of this year. Prior to this suicide attempt she reports drinking a gallon of vodka and stepping in front of a moving vehicle. She has also tried burning her arm in the oven 1 week ago. Currently feels suicidal, denies homicidal ideation. Reports that she hears voices but they are not command type. IN ED, poison control was contacted and recommended to f/u GI recommendations. Patient was transferred to remote [facility] for monitoring. GI and PSYC were consulted. On floors, the patient was alert and oriented and offered no complaints of chest pain, shortness of breath, dysphagia, n/v/d/constipation, fevers/chills, cough, weakness or other complaints. patient was still feeling suicidal and became agitated at the fact that she was not admitted to the psych unit. PAtient was placed on 1:1 observation for suicide watch. ROSANA RAUSCH was called earlier today because patient was agitated and wanted to leave because she had not been seen by psych yet. Dr. Heaton came and evaluated the patient and accepted her to the psych unit pending medical clearance. GI saw the patient and advanced the diet and recs were followed. Patient is medically stable and cleared for d/c to psych unit for psych eval and psych med initiation and suicidal attempt and ideations. - Date & Time of H&P Date of H&P: 11/27/16 Time of H&P: 16:10 Discharge Exam - Additional Findings Additional findings: - Constitutional Appears: Well, Non-toxic, No Acute Distress - Head Exam Head Exam: ATRAUMATIC, NORMAL INSPECTION, NORMOCEPHALIC - Eye Exam Eye Exam: EOMI, Normal appearance, PERRL Pupil Exam: NORMAL ACCOMODATION - ENT Exam ENT Exam: Mucous Membranes Moist - Neck Exam Neck Exam: Full ROM - Respiratory Exam Respiratory Exam: Clear to Ausculation Bilateral, NORMAL BREATHING PATTERN. absent: Rales, Rhonchi, Wheezes, Respiratory Distress - Cardiovascular Exam Cardiovascular Exam: REGULAR RHYTHM, RRR. absent: Murmur - GI/Abdominal Exam GI & Abdominal Exam: Soft, Normal Bowel Sounds. absent: Distended, Guarding, Tenderness - Extremities Exam Extremities Exam: Full ROM, Normal Inspection - Back Exam Back Exam: NORMAL INSPECTION - Neurological Exam Neurological Exam: Alert, Awake, Oriented x3 - Psychiatric Exam Psychiatric exam: Agitated, Suicidal Ideation. absent: Homicidal Ideation - Skin Skin Exam: Normal Color, Warm Additional comments: scars on b/l arms from cutting Discharge Plan - Follow Up Plan Condition: STABLE Disposition: DISCHARGE TO PSYCH HOSPITAL Instructions: Depression (DC), Depression (GEN), Abdominal Pain (ED) Referrals: Dominique Mcfarlane MD [Primary Care Provider] - <Mike Alexander - Last Filed: 11/29/16 18:42> Provider - Provider Date of Admission: 11/27/16 15:27 Attending physician: Mike Alexander MD Primary care physician: Dominique Mcfarlane MD Hospital Course - Lab Results Lab Results: Most Recent Lab Values WBC 4.2 10^3/ul (4.5-11.0) L 11/28/16 05:10 RBC 3.89 10^6/uL (3.5-6.1) 11/28/16 05:10 Hgb 10.7 g/dL (12.0-16.0) L 11/28/16 05:10 Hct 32.6 % (36.0-48.0) L 11/28/16 05:10 MCV 83.8 fl (80.0-105.0) 11/28/16 05:10 MCH 27.5 pg (25.0-35.0) 11/28/16 05:10 MCHC 32.8 g/dl (31.0-37.0) 11/28/16 05:10 RDW 16.3 % (11.5-14.5) H 11/28/16 05:10 Plt Count 211 10^3/uL (120.0-450.0) 11/28/16 05:10 MPV 8.6 fl (7.0-11.0) 11/28/16 05:10 Gran % 57.5 % (50.0-68.0) 11/28/16 05:10 Lymph % (Auto) 33.1 % (22.0-35.0) 11/28/16 05:10 [place] % (Auto) 7.8 % (1.0-6.0) H 11/28/16 05:10 Eos % (Auto) 1.4 % (1.5-5.0) L 11/28/16 05:10 Baso % (Auto) 0.2 % (0.0-3.0) 11/28/16 05:10 Gran # 2.43 (1.4-6.5) 11/28/16 05:10 Lymph # 1.4 (1.2-3.4) 11/28/16 05:10 [place] # 0.3 (0.1-0.6) 11/28/16 05:10 Eos # 0.1 (0.0-0.7) 11/28/16 05:10 Baso # 0.01 K/mm3 (0.0-2.0) 11/28/16 05:10 Sodium 140 mmol/L (132-148) 11/28/16 05:10 Potassium 3.5 mmol/L (3.6-5.0) L 11/28/16 05:10 Chloride 106 mmol/L (98-107) 11/28/16 05:10 Carbon Dioxide 28 mmol/L (21-33) 11/28/16 05:10 Anion Gap 10 (10-20) 11/28/16 05:10 BUN 6 mg/dL (7-21) L 11/28/16 05:10 Creatinine 0.5 mg/dL (0.7-1.2) L 11/28/16 05:10 Est GFR ( Amer) > 60 11/28/16 05:10 Est GFR (Non-Af Amer) > 60 11/28/16 05:10 Random Glucose 85 mg/dL (70-110) 11/28/16 05:10 Calcium 8.6 mg/dL (8.4-10.5) 11/28/16 05:10 Phosphorus 4.3 mg/dL (2.5-4.5) 11/28/16 05:10 Magnesium 2.0 mg/dL (1.7-2.2) 11/28/16 05:10 Total Bilirubin 0.3 mg/dL (0.2-1.3) 11/28/16 05:10 AST 54 U/L (14-36) H 11/28/16 05:10 ALT 46 U/L (7-56) 11/28/16 05:10 Alkaline Phosphatase 123 U/L (38-126) 11/28/16 05:10 Total Creatine Kinase 63 U/L (35-230) 11/27/16 10:49 Total Protein 6.6 g/dL (5.8-8.3) 11/28/16 05:10 Albumin 3.5 g/dL (3.0-4.8) 11/28/16 05:10 Globulin 3.1 gm/dL 11/28/16 05:10 Albumin/Globulin Ratio 1.1 (1.1-1.8) 11/28/16 05:10 Urine Color Yellow (YELLOW) 11/27/16 11:16 Urine Appearance Cloudy (CLEAR) 11/27/16 11:16 Urine pH 7.5 (4.7-8.0) 11/27/16 11:16 Ur Specific [place] 1.010 (1.005-1.035) 11/27/16 11:16 Urine Protein Negative mg/dL (<30 mg/dL) 11/27/16 11:16 Urine Glucose (UA) Negative mg/dL (NEGATIVE) 11/27/16 11:16 Urine Ketones Negative mg/dL (NEGATIVE) 11/27/16 11:16 Urine Blood Negative (NEGATIVE) 11/27/16 11:16 Urine Nitrate Positive (NEGATIVE) H 11/27/16 11:16 Urine Bilirubin Negative (NEGATIVE) 11/27/16 11:16 Urine Urobilinogen 0.2 E.U./dL (<1 E.U./dL) 11/27/16 11:16 Ur Leukocyte Esterase Small [place]/uL (NEGATIVE) H 11/27/16 11:16 Urine RBC 0 - 2 /hpf (0-2) 11/27/16 11:16 Urine WBC 5 - 10 /hpf (0-6) 11/27/16 11:16 Ur Epithelial Cells 3 - 4 /hpf (0-5) 11/27/16 11:16 Urine Bacteria Mod (NEG) 11/27/16 11:16 Salicylates < 1 mg/dL (2.0-20.0) L 11/27/16 10:49 Urine Opiates Screen Positive (NEGATIVE) H 11/27/16 11:16 Urine Methadone Screen Negative (NEGATIVE) 11/27/16 11:16 Acetaminophen < 10.0 ug/ml (10.0-20.0) L 11/27/16 10:49 Ur Barbiturates Screen Negative (NEGATIVE) 11/27/16 11:16 Ur Phencyclidine Scrn Negative (NEGATIVE) 11/27/16 11:16 Ur Amphetamines Screen Negative (NEGATIVE) 11/27/16 11:16 U Benzodiazepines Scrn Negative (NEGATIVE) 11/27/16 11:16 U Oth Cocaine Metabols Negative (NEGATIVE) 11/27/16 11:16 U Cannabinoids Screen Positive (NEGATIVE) H 11/27/16 11:16 Alcohol, Quantitative < 10 mg/dL (0-10) 11/27/16 10:49 HIV 1&2 Ag/Ab, 4th Gen Nonreactive (Nonreactive) 11/28/16 05:10 Attending/Attestation - Attestation I have personally seen and examined this patient.: Yes I have fully participated in the care of the patient.: Yes I have reviewed all pertinent clinical information, including history, physical exam and plan: Yes Notes (Text): I have seen and examined the patient at bedside. Agree with the above note with the following additions/ exceptions: Briefly this is 35 year old female with history of schizophrenia, bipolar d/o, seizure d/o, multiple suicide attempts, alcohol abuse, depression, known and untreated HepC, tobacco use presents to the ED after suicide attempt after consuming alcohol and bleach on Monday night. Patient denies any complaints. Refused examination by me. Patient is requesting for food and is really upset about NPO. Code ghazala was called. Patient was started on soft diet. Continue protonix. Discussed with GI team. Plan for possible endoscopy tomorrow. She is not willing to stay on medsurg floor and is requesting to be transferred to psych floor. Continue 1:1 for suicidal ideation. Patient was advised to follow up in [facility] GI clinic. She has UTI on macrobid. Urine culture pending. Tobacco cessation counselling provided. Upon discharge patient will follow up with Dr Mcfarlane. Dr Mike Alexander
--- NOTE | 2016-11-29 17:13 | CP.PCM.PN ---
<Asa Maza - Last Filed: 11/29/16 17:08> Subjective - Date & Time of Evaluation Date of Evaluation: 11/29/16 Time of Evaluation: 06:00 - Subjective Subjective: patient was seen and examined at bedside. Patient states she has some dysphagia , when she tries to swallow her food it gets caught and has to spit it up sometimes. She also complains of diffuse abdominal pain. pt denies n/v, chest pain, shortness of breath, dysuria or any other complaints. Objective - Vital Signs/Intake and Output Vital Signs (last 24 hours): Temp Pulse Resp BP Pulse Ox 95 F L 91 H 18 132/68 91 L 11/28/16 16:00 11/28/16 16:00 11/28/16 16:00 11/28/16 16:00 11/28/16 16:00 - Labs Labs: 11/28/16 05:10 11/28/16 05:10 - Constitutional Appears: Non-toxic, No Acute Distress - Head Exam Head Exam: ATRAUMATIC, NORMAL INSPECTION, NORMOCEPHALIC - Eye Exam Eye Exam: EOMI, Normal appearance, PERRL - ENT Exam ENT Exam: Mucous Membranes Moist, Normal Exam - Neck Exam Neck Exam: Full ROM. absent: Lymphadenopathy, Tenderness - Respiratory Exam Respiratory Exam: Clear to Ausculation Bilateral, NORMAL BREATHING PATTERN - Cardiovascular Exam Cardiovascular Exam: REGULAR RHYTHM, +S1, +S2 - GI/Abdominal Exam GI & Abdominal Exam: Soft, Normal Bowel Sounds - Back Exam Back Exam: NORMAL INSPECTION - Neurological Exam Neurological Exam: Alert, Awake, Oriented x3 Assessment and Plan - Assessment and Plan (Free Text) Assessment: 35 year old female with past medical history of hepatitis C (untreated), schizophrenia, bipolar disease, anemia , multiple suicide attempts, alcohol abuse w/ withdrawal seizures, depression presents to the ED after suicide attempt by ingestion; Poison control was contacted and recommended GI. Pt is agitated and wanted to leave; ROSANA RAUSCH was called. She is being monitored. Plan: 1. Suicide attempt via ingestion of erosive substance - Regular diet - Protonix 40mg IVP daily - Monitor labs, electrolytes; replete as needed - 1:1 observation for suicide watch - GI consulted, will perform endoscopy Monday - Patient evaluated by Dr. Heaton for psych puente transfer 2. Alcohol abuse/Alcohol withdrawal -Geodon and Ativan to be given. - Ativan 2mg q6H WILMER and 2mg q3H PRN - Keppra for seizure ppx - Banana bag - CIWA protocol - Seizure, fall and aspiration precautions 3. Anemia likely 2/2 chronic ETOH use - No overt signs of bleeding - Continue to monitor 4. Transaminitis likely 2/2 hepatitis C (untreated) - improving - f/u HIV - Continue to monitor - Avoid hepatotoxic agents 5. History of poly-substance abuse - Nicotine patch daily - UTOX positive for opiates and cannabinoids - Strongly advising alcohol and tobacco cessation 6. Asymptomatic Bacteruria - UA showing +nitrates and small leukocyte esterase - Currently asymptomatic - Received one dose of macrobid in ED - urine cx shows Gram neg rods 7. History of Seizure D/O - Continue Keppra 250mg BID - Seizure precautions 8. History of Schizophrenia, Bipolar D/O, Depression, Multiple Suicide attempts - Has not taken her medications for past two years - Psych on consult, f/u recommendations GI/DVT ppx Protonix/SCDs <Mike Alexander - Last Filed: 11/30/16 08:39> Objective - Vital Signs/Intake and Output Vital Signs (last 24 hours): Temp Pulse Resp BP Pulse Ox 95 F L 91 H 18 132/68 91 L 11/28/16 16:00 11/28/16 16:00 11/28/16 16:00 11/28/16 16:00 11/28/16 16:00 - Labs Labs: 11/28/16 05:10 11/28/16 05:10 Attending/Attestation - Attestation I have personally seen and examined this patient.: Yes I have fully participated in the care of the patient.: Yes I have reviewed all pertinent clinical information, including history, physical exam and plan: Yes Notes (Text): I have seen and examined the patient at bedside. Agree with the above note with the following additions/ exceptions: Briefly this is 35 year old female with history of schizophrenia, bipolar d/o, seizure d/o, multiple suicide attempts, alcohol abuse, depression, known and untreated HepC, tobacco use presents to the ED after suicide attempt after consuming alcohol and bleach. Patient was transferred to psych floor for management of depression. She continued to complain of solid food getting stuck in her feeding tube however refusing to be placed on liquid diet. She had one episode of non bloody non bilious vomiting. No other complaints. Discussed with GI team. Plan for endoscopy and patient is now agreeable. In the mean time, continue protonix 40 bid. Urine culture is growing EColi. Start macrobid x 7 days. Patient was advised to follow up in [facility] GI clinic for Hep C treatment. Tobacco cessation counselling provided. Thank You for allowing us to participate in patients care. Please reconsult if needed. Upon discharge patient will follow up with Dr Mcfarlane. Dr Mike Alexander
== END 2016-11-28 17:49 | DRG 750 ==
LOC: ED 10:04 → ERH 15:27 → 3RNO 18:11
PROVIDERS: ADMIT Hospitalist; ATTEND Hospitalist
DX: F10.239 Alcohol dependence with withdrawal, unspecified (principal); F20.9 Schizophrenia, unspecified; R45.851 Suicidal ideations; N39.0 Urinary tract infection, site not specified; B19.20 Unspecified viral hepatitis C without hepatic coma; R82.71 Bacteriuria; R13.10 Dysphagia, unspecified; F31.9 Bipolar disorder, unspecified; G40.909 Epilepsy, unspecified, not intractable, without status epilepticus; B96.20 Unspecified Escherichia coli [E. coli] as the cause of diseases classified elsewhere; T65.892A Toxic effect of other specified substances, intentional self-harm, initial encounter; F17.210 Nicotine dependence, cigarettes, uncomplicated; Z90.710 Acquired absence of both cervix and uterus; Z98.84 Bariatric surgery status; R40.2412 Glasgow coma scale score 13-15, at arrival to emergency department; F41.9 Anxiety disorder, unspecified; F12.90 Cannabis use, unspecified, uncomplicated; Z91.013 Allergy to seafood; D64.9 Anemia, unspecified; R74.0 Nonspecific elevation of levels of transaminase and lactic acid dehydrogenase [LDH]; F19.11 Other psychoactive substance abuse, in remission

== ENCOUNTER 2016-11-28 17:45 | Inpatient (IN) | payer MEDICAID ==
[2016-11-28 18:08] VITALS: BMI 22.8
[2016-11-28] MEDS ORDERED: Magnesium Hydroxide Susp 30 ml UD PO PRN ×2 (18:25→18:27)
[2016-11-28] MEDS ORDERED: Alum-Mag Hydrox-Simethicone Susp (30 mL) PO PRN ×2 (18:25→18:27)
--- NOTE | 2016-11-28 19:49 | PCM.BM ---
<Yanira Aragon - Last Filed: 11/28/16 19:46> Treatment Plan Problems - Problems identified on initial assessmt DEPRESSION Date Initiated: 11/28/16 Time Initiated: 19:00 Assessment reference: NA Status: Active Priority: 1 SUICIDAL ATTEMPT Date Initiated: 11/28/16 Time Initiated: 19:00 Assessment reference: NA Status: Active Priority: 2 ALCOHOL ABUSE Date Initiated: 11/28/16 Time Initiated: 19:00 Assessment reference: NA Status: Active Priority: 3 Treatment assets and liabiliti Patient Assests: cooperative, ADL independent, cognitively intact Patient Liabilities: live alone, financial problems, poor support system, relationship conflicts, substance abuse - Milieu Protocol Maintain good personal hygiene: daily Encourage regular showers, daily Remind patient to perform daily oral care, daily Assist patient to perform ADL's Maintain personal safety: every shift Educate patient to report safety concerns to staff, every shift Monitor environment for contraband/sharps Medication safety: Monitor for expected outcome, potential side effects: every shift, Assess barriers to learning: every shift, Assess readiness for medication education: every shift Discharge/Continuing Care - Education Needs Education Needs: Patient Medication, Patient Diagnosis/Disease Process, Patient Coping Skills, Patient Community resources, Patient Activities of Daily Living, Patient Nutrition, Patient Uses of Medical Equipment, Patient Health Practices/ Safety, Patient Personal Hygiene/Grooming, Patient Aftercare Safety Plan - Discharge Discharge Criteria: Tolerates medication w/o severe side effects, Free of Suicidal thoughts, Free of Homicidal thoughts, Free of paranoid thoughts, Normal sleep pattern, Ability to care for self, No longer exhibiting s/s of withdrawal, Reduction of target symptoms Discharge to:: [facility]stance Abuse Rehab <Florina Shah - Last Filed: 11/29/16 08:44> - Diagnosis (1) Bipolar disorder Status: Acute Interventions: 11/29/16 08:45 Psychoeducation Psychopharmacology/adjustment of medications as needed/ monitoring possible side effects Monitor blood level of mood stabilizers Evaluate pt on daily basis Compliance with medications and follow up appointments Suicide and homicide risk assessment and prevention, coping strategies, safety plan Relapse prevention Reduction of symptoms Improve functional status Family involvement As outpatient: cognitive behavioral therapy (2) Alcohol use disorder Status: Acute Interventions: 11/29/16 08:45 Monitoring withdrawal symptoms Medical detoxification Pharmacotherapy for alcohol/benzos/opioid dependence Maintaining sobriety Relapse prevention Possible rehabilitation Motivational interviewing 12-step programs: AA meetings (3) Impulse control disease Status: Acute Interventions: 11/29/16 08:46 Psychoeducation med management Evaluate pt on daily basis Compliance with medications and follow up appointments Suicide and homicide risk assessment and prevention, coping strategies, safety plan Relapse prevention Reduction of symptoms Improve functional status Family involvement <Diana Christy - Last Filed: 11/30/16 14:47>
[2016-11-29 08:27] LABS: CHOLESTEROL 183 mg/dL (130-200)
[2016-11-29 08:33] LABS: FREE T4 0.94 ng/dL (0.78-2.19)
[2016-11-29 08:47] LABS: THYROID STIMULATING HORMONE 1.01 mIU/mL (0.46-4.68)
[2016-11-29] MEDS: Multivitamin Therapeutic Tab PO SCH (08:59)
[2016-11-29] MEDS: Divalproex 500 mg DR(BID formulation) PO SCH ×2 (09:00→17:50)
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
[2016-11-29] MEDS: Pantoprazole 40 mg EC Tab PO SCH (17:50)
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
[2016-11-30] MEDS: Pantoprazole 40 mg EC Tab PO SCH ×2 (06:22→17:42)
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
[2016-11-30] MEDS: Multivitamin Therapeutic Tab PO SCH (08:41)
[2016-11-30] MEDS: Divalproex 500 mg DR(BID formulation) PO SCH ×2 (08:42→17:43)
--- NOTE | 2016-11-30 16:29 | PCM.PYCHPN ---
Psychiatric Progress Note - Psychiatric Progress Note Patient seen today, length of contact: 30min Patient Chief Complaint: "I feel aggravated" Diagnostic Results: Lab Results 11/29/16 07:40: RPR Nonreactive 11/29/16 07:40: Triglycerides 106, Cholesterol 183, LDL Cholesterol Direct 81, HDL Cholesterol 67 H 11/29/16 07:40: Free T4 0.94, TSH 3rd Generation 1.01 Vital Signs Temp Pulse Resp BP 11/30/16 06:55 97.5 F L 107 H 22 113/79 11/29/16 16:00 72 131/89 11/29/16 06:42 98.1 F 98 H 18 122/83 11/28/16 18:12 98 F 73 18 126/95 H DSM 5 Symptoms Update: david patient is 36 year old female, self reported history of schizophrenia but it is questionable, most likely patient has history of bipolar disorder with psychotic symptoms, patient also has history of alcohol use disorder, chronic noncompliance with the medication and follow-up appointments, patient has history of detoxes in the past, initially patient was admitted on the medical side status post questionable suicidal attempt patient overdose on bleach, patient was medically cleared, yesterday patient was agitated, but willing to sign herself into the psychiatric inpatient unit, patient was transferred to the psychiatric unit uneventfully. Patient was seen and examined today at the treatment team meeting. improved hygiene, pt still irritable, seems to be overmedicated, was slow with her responds, at the same time pt presented to have typical substance abuser attitude, despite the fact that pt is falling asleep during the interview pt was keep asking to increase medications. "I feel aggravated, you need to increase my medications, I cursed at the nurse today". as per staff pt was falling asleep during the groups, street type attitude, at times disrespectful. MSE: Pt deemed to be reliable historian, well related to this leader writer. Pt looks stated age, good personal hygiene, good ADLs, psychomotor agitation/ irritability, speech was:minimal, eye contact: intermittent, mood described: "I feel aggravated", affect: is irritable mood congruent, thought process: goal directed , thought content: pt denied SI/ HI, pt reported to feel paranoid, ?V/ A hallucinations, insight/judgment: poor, impulses unpredictable. Impression: bipolar type II, most recent episode mixed Alcohol use disorder, severe Alcohol withdrawal symptoms Rule out PTSD Treatment plan: Milieu/structure/supportive therapy Medical consult Was called SW consultation for discharge plan and social issues Med management when necessary medications Ativan, multivitamins, thiamine, folic acid depakote 500 mg twice a day for mood stabilization prozac 20mg po daily gabapentin 600 mg 3 times a day for alcohol cravings seven-month stabilization Seroquel 300 mg twice a day at the morning time at the nighttime from mood stabilization for psychotic symptoms Keppra to 250 mg will be continued, it was started by medical team Ambien 10 mg at the nighttime as needed for insomnia Family involvement Follow up on labs Will monitor closely nicotine patch evaluation for d/c planning Pt was educated about risk/benefits and alternatives of medications, coping strategies (safety plan, suicide prevention), relapse prevention, importance of follow up with psychiatrist and therapist, stay away from drugs/alcohol/smoking will consider naltrexone Medication Change: Yes Medical Record Reviewed: Yes Consults ordered or reviewed: medical consult, GI consult appreciated, initially pt refused to have endoscopy , but not agreed as per GI team.
--- NOTE | 2016-11-30 16:51 | CP.PCM.PN ---
<Donya Leung - Last Filed: 11/30/16 16:44> Subjective - Date & Time of Evaluation Date of Evaluation: 11/30/16 Time of Evaluation: 11:00 - Subjective Subjective: Since examined at the bedside earlier today, patient given clear liquid diet for possible endoscopy, patient had solid breakfast and refused to be nothing by mouth for endoscopy. She does complain of epigastric discomfort and sensation of food in the chest. No reports of nausea or vomiting. No reports of overt GI bleed. Objective - Vital Signs/Intake and Output Vital Signs (last 24 hours): Temp Pulse Resp BP Pulse Ox 97.5 F L 107 H 22 113/79 11/30/16 06:55 11/30/16 06:55 11/30/16 06:55 11/30/16 06:55 - Medications Medications: Current Medications Acetaminophen (Tylenol 325mg Tab) 650 mg PO Q4 PRN PRN Reason: Pain, moderate (4-7) Al Hydrox/Mg Hydrox/Simethicone (Maalox Plus 30 Ml) 30 ml PO DAILY PRN PRN Reason: Upset Stomach Divalproex Sodium (Depakote Dr(*Bid*)) 500 mg PO BID [facility] Last Admin: 11/30/16 08:42 Dose: 500 mg Fluoxetine HCl (Prozac) 20 mg PO DAILY [facility] Last Admin: 11/30/16 08:41 Dose: 20 mg Folic Acid (Folic Acid) 1 mg PO DAILY [facility] Last Admin: 11/30/16 08:40 Dose: 1 mg Gabapentin (Neurontin) 600 mg PO TID [facility] PRN Reason: Protocol Last Admin: 11/30/16 13:09 Dose: 600 mg Levetiracetam (Keppra) 250 mg PO BID [facility] Last Admin: 11/30/16 08:42 Dose: 250 mg Lorazepam (Ativan) 2 mg PO Q6H PRN; Protocol PRN Reason: Agitation Last Admin: 11/29/16 23:54 Dose: 2 mg Lorazepam (Ativan) 1 mg IM Q6H PRN; Protocol PRN Reason: Anxiety Lorazepam (Ativan) 2 mg PO TID [facility] PRN Reason: Protocol Last Admin: 11/30/16 13:09 Dose: 2 mg Magnesium Hydroxide (Milk Of Magnesia) 30 ml PO DAILY PRN PRN Reason: Constipation Multivitamins (Thera Tab) 1 tab PO 0800 [facility] Last Admin: 11/30/16 08:41 Dose: 1 tab Nicotine (Nicoderm Cq) 1 patch TD DAILY [facility] Last Admin: 11/30/16 08:40 Dose: 1 patch Nitrofurantoin Macrocrystals (Macrobid) 100 mg PO Q12 [facility] Stop: 12/06/16 23:59 Pantoprazole Sodium (Protonix Ec Tab) 40 mg PO 0600,1600 [facility] Last Admin: 11/30/16 06:22 Dose: 40 mg Quetiapine Fumarate (Seroquel) 300 mg PO AMHS [facility] PRN Reason: Protocol Thiamine HCl (Vitamin B1 Tab) 100 mg PO DAILY [facility] Last Admin: 11/30/16 08:41 Dose: 100 mg Ziprasidone (Geodon Inj) 20 mg IM BID PRN; Protocol PRN Reason: Agitation Last Admin: 11/30/16 13:24 Dose: 20 mg Ziprasidone (Geodon Cap) 20 mg PO BID PRN; Protocol PRN Reason: Agitation Zolpidem Tartrate (Ambien) 10 mg PO HS PRN; Protocol PRN Reason: Insomnia Last Admin: 11/29/16 21:28 Dose: 10 mg - Constitutional Appears: No Acute Distress - Head Exam Head Exam: NORMOCEPHALIC - Eye Exam Eye Exam: Normal appearance. absent: Scleral icterus - ENT Exam ENT Exam: Mucous Membranes Moist - Neck Exam Neck Exam: Normal Inspection - Respiratory Exam Respiratory Exam: NORMAL BREATHING PATTERN. absent: Respiratory Distress - Cardiovascular Exam Cardiovascular Exam: +S1, +S2 - GI/Abdominal Exam GI & Abdominal Exam: Soft, Normal Bowel Sounds. absent: Guarding, Tenderness, Rebound - Neurological Exam Neurological Exam: Alert, Awake, Oriented x3 - Skin Skin Exam: Dry, Warm Assessment and Plan - Assessment and Plan (Free Text) Assessment: Assessment: Bipolar disorder, attempted suicide status post intake of Mister clean and bleach ETOH abuse History of gastric bypass Plan: continue regular soft diet Continue PPI On Ativan On Folic Acid continue PPI BID Patient continues to refuse endoscopy, was planned again for today in afternoon and given clear liquid for breakfast, states she cannot go without eating, demands that it be done in the am, discuss w/ patient that this is not guaranteed and that is why she was given clear liquid for breakfast today, states "I'll have it done as an outpatient, I have insurance". Seen and discussed with Dr. Marshall <Sukh Marshall V - Last Filed: 11/30/16 23:59> Objective - Vital Signs/Intake and Output Vital Signs (last 24 hours): Temp Pulse Resp BP Pulse Ox 97.5 F L 86 22 117/76 11/30/16 06:55 11/30/16 16:00 11/30/16 06:55 11/30/16 16:00 - Medications Medications: Current Medications Acetaminophen (Tylenol 325mg Tab) 650 mg PO Q4 PRN PRN Reason: Pain, moderate (4-7) Al Hydrox/Mg Hydrox/Simethicone (Maalox Plus 30 Ml) 30 ml PO DAILY PRN PRN Reason: Upset Stomach Divalproex Sodium (Depakote Dr(*Bid*)) 500 mg PO BID [facility] Last Admin: 11/30/16 17:43 Dose: 500 mg Fluoxetine HCl (Prozac) 20 mg PO DAILY [facility] Last Admin: 11/30/16 08:41 Dose: 20 mg Folic Acid (Folic Acid) 1 mg PO DAILY [facility] Last Admin: 11/30/16 08:40 Dose: 1 mg Gabapentin (Neurontin) 600 mg PO TID [facility] PRN Reason: Protocol Last Admin: 11/30/16 17:42 Dose: 600 mg Levetiracetam (Keppra) 250 mg PO BID [facility] Last Admin: 11/30/16 17:42 Dose: 250 mg Lorazepam (Ativan) 2 mg PO Q6H PRN; Protocol PRN Reason: Agitation Last Admin: 11/30/16 21:21 Dose: 2 mg Lorazepam (Ativan) 1 mg IM Q6H PRN; Protocol PRN Reason: Anxiety Lorazepam (Ativan) 2 mg PO TID [facility] PRN Reason: Protocol Last Admin: 11/30/16 17:42 Dose: 2 mg Magnesium Hydroxide (Milk Of Magnesia) 30 ml PO DAILY PRN PRN Reason: Constipation Multivitamins (Thera Tab) 1 tab PO 0800 [facility] Last Admin: 11/30/16 08:41 Dose: 1 tab Nicotine (Nicoderm Cq) 1 patch TD DAILY [facility] Last Admin: 11/30/16 08:40 Dose: 1 patch Nitrofurantoin Macrocrystals (Macrobid) 100 mg PO Q12 [facility] Stop: 12/06/16 23:59 Last Admin: 11/30/16 17:42 Dose: 100 mg Pantoprazole Sodium (Protonix Ec Tab) 40 mg PO 0600,1600 [facility] Last Admin: 11/30/16 17:42 Dose: 40 mg Quetiapine Fumarate (Seroquel) 300 mg PO AMHS [facility] PRN Reason: Protocol Last Admin: 11/30/16 21:11 Dose: 300 mg Thiamine HCl (Vitamin B1 Tab) 100 mg PO DAILY [facility] Last Admin: 11/30/16 08:41 Dose: 100 mg Ziprasidone (Geodon Inj) 20 mg IM BID PRN; Protocol PRN Reason: Agitation Last Admin: 11/30/16 13:24 Dose: 20 mg Ziprasidone (Geodon Cap) 20 mg PO BID PRN; Protocol PRN Reason: Agitation Last Admin: 11/30/16 21:21 Dose: 20 mg Zolpidem Tartrate (Ambien) 10 mg PO HS PRN; Protocol PRN Reason: Insomnia Last Admin: 11/29/16 21:28 Dose: 10 mg Attending/Attestation - Attestation I have personally seen and examined this patient.: Yes I have fully participated in the care of the patient.: Yes I have reviewed all pertinent clinical information, including history, physical exam and plan: Yes Notes (Text): This is an addendum to GI progress report dictated by Donya Leung APN.The patient was seen and examined earlier. Medical records, lab studies, imagings were reviewed. Last 24 hours events reviewed. Agreed with the above treatment plan as outlined in Doyna Leung APN's notes the with the addition of the following tolerating the diet Discussed with the patient lying finally agreeable for EGD. 11/30/16 23:58
[2016-12-01] MEDS: Pantoprazole 40 mg EC Tab PO SCH ×2 (06:29→16:40)
[2016-12-01] MEDS: Multivitamin Therapeutic Tab PO SCH (09:18)
[2016-12-01] MEDS: Divalproex 500 mg DR(BID formulation) PO SCH ×2 (09:40→16:40)
--- NOTE | 2016-12-01 13:20 | CP.PCM.PN ---
Subjective - Date & Time of Evaluation Date of Evaluation: 12/01/16 Time of Evaluation: 11:20 - Subjective Subjective: Seen and examined at the bedside earlier today, the patient still gets epigastric discomfort but is tolerating oral intake. No reports of nausea, vomiting, shortness of breath or chest pain. No reports of hematemesis or bleeding per rectum. Objective - Vital Signs/Intake and Output Vital Signs (last 24 hours): Temp Pulse Resp BP Pulse Ox 97.5 F L 86 22 117/76 11/30/16 06:55 11/30/16 16:00 11/30/16 06:55 11/30/16 16:00 - Medications Medications: Current Medications Acetaminophen (Tylenol 325mg Tab) 650 mg PO Q4 PRN PRN Reason: Pain, moderate (4-7) Al Hydrox/Mg Hydrox/Simethicone (Maalox Plus 30 Ml) 30 ml PO DAILY PRN PRN Reason: Upset Stomach Divalproex Sodium (Depakote Dr(*Bid*)) 500 mg PO BID [facility] Last Admin: 12/01/16 09:40 Dose: 500 mg Fluoxetine HCl (Prozac) 20 mg PO DAILY [facility] Last Admin: 12/01/16 09:19 Dose: 20 mg Folic Acid (Folic Acid) 1 mg PO DAILY [facility] Last Admin: 12/01/16 09:17 Dose: 1 mg Gabapentin (Neurontin) 600 mg PO TID [facility] PRN Reason: Protocol Last Admin: 12/01/16 09:18 Dose: 600 mg Levetiracetam (Keppra) 250 mg PO BID [facility] Last Admin: 12/01/16 09:18 Dose: 250 mg Lorazepam (Ativan) 1 mg PO Q6H PRN; Protocol PRN Reason: Agitation Lorazepam (Ativan) 1 mg PO TID [facility] PRN Reason: Protocol Magnesium Hydroxide (Milk Of Magnesia) 30 ml PO DAILY PRN PRN Reason: Constipation Multivitamins (Thera Tab) 1 tab PO 0800 [facility] Last Admin: 12/01/16 09:18 Dose: 1 tab Nicotine (Nicoderm Cq) 1 patch TD DAILY [facility] Last Admin: 12/01/16 09:16 Dose: 1 patch Nitrofurantoin Macrocrystals (Macrobid) 100 mg PO 0800,1999 [facility] Stop: 12/06/16 23:59 Last Admin: 12/01/16 09:20 Dose: 100 mg Ondansetron HCl (Zofran Odt) 4 mg PO Q8H PRN PRN Reason: Nausea/Vomiting Last Admin: 12/01/16 11:17 Dose: 4 mg Pantoprazole Sodium (Protonix Ec Tab) 40 mg PO 0600,1600 [facility] Last Admin: 12/01/16 06:29 Dose: 40 mg Thiamine HCl (Vitamin B1 Tab) 100 mg PO DAILY [facility] Last Admin: 12/01/16 09:18 Dose: 100 mg Ziprasidone (Geodon Inj) 20 mg IM BID PRN; Protocol PRN Reason: Agitation Last Admin: 11/30/16 13:24 Dose: 20 mg Ziprasidone (Geodon Cap) 40 mg PO AMHS [facility] PRN Reason: Protocol Zolpidem Tartrate (Ambien) 10 mg PO HS PRN; Protocol PRN Reason: Insomnia Last Admin: 11/29/16 21:28 Dose: 10 mg - Constitutional Appears: No Acute Distress - Head Exam Head Exam: NORMOCEPHALIC - Eye Exam Eye Exam: Normal appearance. absent: Scleral icterus - ENT Exam ENT Exam: Mucous Membranes Moist - Neck Exam Neck Exam: Normal Inspection - Respiratory Exam Respiratory Exam: Clear to Ausculation Bilateral, Wheezes. absent: Respiratory Distress - Cardiovascular Exam Cardiovascular Exam: +S1, +S2 - GI/Abdominal Exam GI & Abdominal Exam: Soft, Normal Bowel Sounds. absent: Guarding, Tenderness, Rebound - Extremities Exam Extremities Exam: Normal Capillary Refill. absent: Calf Tenderness, Pedal Edema - Neurological Exam Neurological Exam: Alert, Awake, Oriented x3 - Skin Skin Exam: Dry, Warm Assessment and Plan - Assessment and Plan (Free Text) Assessment: Assessment: Bipolar disorder, attempted suicide status post intake of Mister clean and bleach ETOH abuse History of gastric bypass H/O Hepatitis C , untreated Plan: continue regular soft diet Continue PPI On Ativan On Folic Acid continue PPI BID NPO 12 midnight except meds for egd in am on 12/02/16, discuss with patient and agree, told no eating after midnight. Informed nursing staff. labs in am, see order: bmp, pt/ptt Seen and discussed with Dr. Marshall
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
[2016-12-02] MEDS: Pantoprazole 40 mg EC Tab PO SCH ×2 (06:29→18:20)
[2016-12-02 06:59] VITALS: RESP 20
[2016-12-02] MEDS ORDERED: Sodium Chloride 0.9% 1,000 ML IV SCH (09:30)
[2016-12-02] MEDS: Divalproex 500 mg DR(BID formulation) PO SCH ×2 (10:50→18:21)
[2016-12-02] MEDS: Multivitamin Therapeutic Tab PO SCH (10:52)
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
[2016-12-03] MEDS: Pantoprazole 40 mg EC Tab PO SCH (06:20)
[2016-12-03 06:36] VITALS: BP 94/64; PULSE 85; TEMP 98.2
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
[2016-12-03] MEDS: Multivitamin Therapeutic Tab PO SCH (09:21)
[2016-12-03] MEDS: Divalproex 500 mg DR(BID formulation) PO SCH (09:21)
== END 2016-12-03 13:24 | disposition home or self-care (01) | DRG 430 ==
LOC: PSYC 17:45
PROVIDERS: ADMIT Psychiatry & Neurology Psychiatry; ATTEND Psychiatry & Neurology Psychiatry
DX: F31.81 Bipolar II disorder (principal); F11.20 Opioid dependence, uncomplicated; F10.239 Alcohol dependence with withdrawal, unspecified; B19.20 Unspecified viral hepatitis C without hepatic coma; R82.71 Bacteriuria; G40.909 Epilepsy, unspecified, not intractable, without status epilepticus; F60.2 Antisocial personality disorder; F60.3 Borderline personality disorder; J45.909 Unspecified asthma, uncomplicated; F20.9 Schizophrenia, unspecified; K59.00 Constipation, unspecified; Z79.899 Other long term (current) drug therapy; F17.210 Nicotine dependence, cigarettes, uncomplicated; Z90.710 Acquired absence of both cervix and uterus; Z91.14 Patient's other noncompliance with medication regimen; Z91.410 Personal history of adult physical and sexual abuse; Z98.84 Bariatric surgery status; G47.00 Insomnia, unspecified; Z91.013 Allergy to seafood; F12.90 Cannabis use, unspecified, uncomplicated; D64.9 Anemia, unspecified; B96.20 Unspecified Escherichia coli [E. coli] as the cause of diseases classified elsewhere; F41.8 Other specified anxiety disorders

== ENCOUNTER 2016-12-30 20:43 | Emergency (ER) | payer MEDICAID ==
[2016-12-30] MEDS ORDERED: Naloxone 0.4 mg/ml Inj (Adult) ONE (20:46)
[2016-12-30 20:49] VITALS: BMI 25.7
[2016-12-30 20:54] VITALS: PULSE 0
--- NOTE | 2016-12-30 21:14 | ED PDOC ---
Arrival/HPI - General Chief Complaint: Cardiac Arrest Time Seen by Provider: 12/30/16 20:45 Historian: EMS EM Caveat: Acuity of Condition (cardiac arrest ) - History of Present Illness Narrative History of Present Illness (Text): 12/30/16 20:41 A 36 year old female, whose past medical history includes seizure disorder, gastric bypass, prescription drug abuse, alcohol abuse, depression, suicidal ideation, bleach ingestion, and bipolar disorder, presents to the emergency department via EMS for cardiac arrest. The patients boyfriend found the patient in bed unresponsive, cold, and with no pulse. 20:15 EMS intubated patient and CPR initiated by BLS, given 3 dosages of epi, et tube 7.5, 25 cm at the lip, IO to left tibia; downtime may be up to 3 hours. HPI & ROS limited due to cardiac arrest. Time/Duration: Prior to Arrival Symptom Onset: Gradual Symptom Course: Unchanged Activities at Onset: Other Context: Home Past Medical History - Provider Review Nursing Documentation Reviewed: Yes - Past History Past History: Unable to Obtain - Infectious Disease Hx of Infectious Diseases: None - Tetanus Immunization Tetanus Immunization: Unknown - Cardiac Hx Hypertension: No - Pulmonary Hx Asthma: Yes Hx Bronchitis: Yes - Neurological Hx Seizures: Yes (alcohol w/d) - HEENT Hx HEENT Disorder: No - Renal Hx Renal Disorder: No Hx Kidney Stones: Yes - Hematological/Oncological Hx Anemia: Yes (iron deficient) - Integumentary Hx Dermatological Disorder: No - Musculoskeletal/Rheumatological Hx Falls: No - Genitourinary/Gynecological Hx Sexually Transmitted Diseases: No - Psychiatric Hx Anxiety: Yes Hx Bipolar Disorder: Yes Hx Depression: Yes Hx Schizophrenia: Yes Hx Substance Use: Yes - Past Surgical History Past Surgical History: Unable to Obtain - Surgical History Hx Cholecystectomy: Yes - Anesthesia Hx Anesthesia: Yes Hx Anesthesia Reactions: No Hx Malignant Hyperthermia: No - Suicidal Assessment Feels Threatened In Home Enviroment: No Family/Social History - Physician Review Nursing Documentation Reviewed: Yes Family/Social History: No Known Family HX Smoking Status: Heavy Smoker > 10 Cigarettes Daily Hx Alcohol Use: Yes Hx Substance Use: Yes Substance used: Oxycodone, heroin Hx Substance Use Treatment: No Allergies/Home Meds Allergies/Adverse Reactions: Allergies shellfish Allergy (Intermediate, Uncoded 12/22/16 17:26) ANGIOEDEMA Home Medications: Home Meds Medication Instructions Recorded Confirmed Divalproex [Depakote ER] 500 mg PO BID 12/22/16 12/30/16 levETIRAcetam [Keppra] 500 mg PO BID 12/22/16 12/30/16 FLUoxetine [Prozac] 30 mg PO DAILY 12/30/16 12/30/16 levETIRAcetam [Keppra] 500 mg PO BID 12/30/16 12/30/16 Review of Systems - Review of Systems Systems not reviewed;Unavailable: Other (cardiac arrest) Physical Exam - Physical Exam Physical Exam Limitations: Clinical Condition Vital Signs Reviewed: Yes Vital Signs Temp Pulse Pulse 12/30/16 21:39 94.8 F L 12/30/16 21:01 0 L 12/30/16 20:45 0 L 12/30/16 20:44 0 L Pulse: Pulseless Respiratory Rate: Mechanically Ventilated Mental Status: Positive for: other (unresponsive ) - Systems Exam Head: Present: Atraumatic Pupils: Present: PERRL Extroacular Muscles: Present: EOMI Conjunctiva: Present: Normal Mouth: Present: Moist Mucous Membranes Nose (External): Present: Atraumatic Respiratory/Chest: Present: Clear to Auscultation (with BVM) Cardiovascular: Present: Other (Asystole, No pulse) Abdomen: No: Distention Upper Extremity: Present: Normal Inspection Lower Extremity: Present: Normal Inspection Neurological: Present: Other (Unresponse). No: Motor Func Grossly Intact, Normal Sensory Function Skin: Present: Cold Medical Decision Making ED Course and Treatment: 12/30/16 21:00 Impression: A 36 year old female brought in by ALS for cardiac arrest Differential Diagnosis included but are not limited to: cardiac arrest Prior Visits: Notes and results from previous visits were reviewed. The patient was admitted to [facility] for alcohol detox and was discharge on 12/27/16. Progress Notes: The patient is brought in by ALS for cardiac arrest. The patient was intubated in the field by EMS, CPR was immediately initiated. Patient was given 3 doses of EPI in the field. Estimated downtime is approximately 3 hours prior to emergency department arrival. Upon arrival to the emergency department ACLS protocol was initiated. Et tube in place 7.5 gauge, 25 cm at the lip. The patient was given 2 mg of Narcan, 100mg Thiamine and 6 epis in total were given. Refer to nursing code documentation for further information. The patient remained asystole with no palpable pulses. Bedside ultrasound was preformed to confirm and this showed no cardiac wall movement. Time of was called at 21 :01. patent examiner notified. Patient has no PMD. Family not present in emergency department and are unable to contact at this time. certificate will be initiated by me. 12/30/16 21:38 The patient's aunt and aunts boyfriend have arrived to the emergency department and discussed resuscitation efforts and all questions answered at this time. Aunt states that she suspects overdose of heroine because she's done this before. 12/30/16 21:45 EM & organ donation was called by Sissy. - Critical Care Critical Care Minutes: 60 minutes - Scribe Statement The provider has reviewed the documentation as recorded by the Scribe Lesa Rodriguez Provider Scribe Attestation: All medical record entries made by the Scribe were at my direction and personally dictated by me. I have reviewed the chart and agree that the record accurately reflects my personal performance of the history, physical exam, medical decision making, and the department course for this patient. I have also personally directed, reviewed, and agree with the discharge instructions and disposition. Disposition/Present on Arrival - Present on Arrival Any Indicators Present on Arrival: No History of DVT/PE: No History of Uncontrolled Diabetes: No Urinary Catheter: No History of Decub. Ulcer: No History Surgical Site Infection Following: None - Disposition Have Diagnosis and Disposition been Completed?: Yes Diagnosis: Cardiac arrest Disposition: WITH WITHOUT AUTOPSY Disposition Time: 21:01 Patient Problems: Current Active Problems Problem Status Onset Cardiac arrest Acute Condition: Forms: [employer] (Indonesian)
[2016-12-30 21:39] VITALS: TEMP 94.8
[2016-12-31 00:21] VITALS: BP 90/25
== END 2016-12-31 02:27 ==
LOC: ED 20:43
DX: I46.9 Cardiac arrest, cause unspecified (principal)